=== PATIENT | male | born 1955 | race Caucasian/White ===

== ENCOUNTER 2020-06-28 07:39 | Outpatient (RCR) | payer MEDICAID, SELFPAY | END 2020-06-28 23:59 | disposition home or self-care (01) | LOC: ANHAUDIO 07:39 | PROVIDERS: PCP Family Medicine; Visit Provider Family Medicine | DX: Z46.1 Encounter for fitting and adjustment of hearing aid (principal) | CPT/HCPCS: 99199 ==

== ENCOUNTER 2020-09-28 08:44 | Outpatient (RCR) | payer MEDICAID, SELFPAY | END 2020-12-27 23:59 | disposition home or self-care (01) | LOC: ANHBWCAUD 08:44 | PROVIDERS: PCP Family Medicine; Visit Provider Family Medicine | DX: Z46.1 Encounter for fitting and adjustment of hearing aid (principal) | CPT/HCPCS: 99199 ==

== ENCOUNTER 2022-02-08 14:00 | Outpatient (RCR) | payer MEDICARE, MEDICAID, SELFPAY | END 2022-02-08 23:59 | disposition home or self-care (01) | LOC: ANHAUDIO 14:00 | PROVIDERS: PCP Family Medicine; Visit Provider Family Medicine | DX: Z46.1 Encounter for fitting and adjustment of hearing aid (principal) | CPT/HCPCS: 99199; V5014 ==

== ENCOUNTER 2024-12-30 15:38 | Outpatient (CLI) | payer MEDICARE, MEDICAID, SELFPAY ==
--- OUTSIDE RECORDS SUMMARY | 2024-12-30 15:44 | XMS_ITS | Referral Summary ---
Author Organization [facility] Address [address] [place] [address] Care Team Providers Care Utility Division Project Manager Name Role Phone Unavailable Primary Care Provider Unavailabl e Source Comments [facility],non-owned Affiliates and Associated Physician Practices is amultiple site organization consisting of ambulatory clinics and hospital sitesin [place], [place], [place] and [place]. This disclosure is being madepursuant to the Care Everywhere program and may not contain all information available regarding this patient. Last updated 18.[employer] Allergies No known active allergies Medications * Be aware that medications may not be up to date on this document. Alwaysverify current medications with the patient. Medication Sig Dispensed Refills Start Date End Date Status SYNTHROID 75 MCG tablet once daily. 03/22/2015 Active niacin CR (NIASPAN) 500 MG tablet Take 500 mg by mouth 2 times daily. 2 in the am and 2 in the pm Active oxyCODONE-acetaminop hen (PERCOCET) 5-325 MG tablet Take 1 Tab by mouth every 4 hours as needed for Pain. Active phenazopyridine (PYRIDIUM) 100 MG tablet Take 1 Tab by mouth 3 times daily with meals. 15 Tab 0 04/16/2015 Active Additional Information Patient not taking.Reported on 06/10/2015 hydrocodone-acetamin ophen (NORCO) 5-325 MG tablet Take 1 Tab by mouth every 6 hours as needed for Pain. 30 Tab 0 04/16/2015 Active Additional Information Patient not taking.Reported on 06/10/2015 clopidogrel (PLAVIX) 75 MG tablet Take 75 mg by mouth once daily. Active NITROSTAT 0.4 MG tablet 04/26/2015 Active simvastatin (ZOCOR) 40 MG tablet TAKE 1 TABLET AT BEDTIME 90 Tab 2 07/14/2016 Active Active Problems Problem Noted Date Diagnosed Date VISHNU to ramus in 03/201506/10/2015 VISHNU to ramus in 200406/10/2015 Hypercholesterolemia 06/10/2015 ERIK treated with BiPAP 06/10/2015 Resolved Problems Problem Noted Date Diagnosed Date Resolved Date Sinus bradycardia 06/07/2015 06/10/2015 Social History Tobacco Use Types Packs/Day Years Used Date Smoking Tobacco: Former Cigarettes Q uit: 04/15/2002 Tobacco Cessation:Counseling Given: No Alcohol Use Standard Drinks/Week Comments No 0 (1 standard drink = 0.6 oz pur e alcohol) Sex and Gender Information Value Date Recorded Sex Assigned at Not on file Gender Identity Not on file Sexual Orientation Not on file Last Filed Vital Signs Vital Sign Reading Time Taken Comments Blood Pressure 121/75 06/10/2015 3:08 PM CDT Pulse 55 06/10/2015 3:08 PM CDT Temperature 36.4 ??C (97.5 ??F) 04/16/2015 7:06 PM CD T Respiratory Rate 17 06/10/2015 3:08 PM CDT Oxygen Saturation 99% 04/16/2015 7:06 PM CDT Inhaled Oxygen Concentration - - Weight 87.1 kg (192 lb) 06/10/2015 3:08 PM CDT Height 180.3 cm (5' 11 ) 06/10/2015 3:08 PM CDT Body Mass Index 26.78 06/10/2015 3:08 PM CDT Plan of Treatment Not on file Medical Devices Implanted Type 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
--- OUTSIDE RECORDS SUMMARY | 2024-12-30 15:44 | XMS_ITS | Encounter Summary ---
Author Organization [facility] Address [address] [place] [address] Care Team Providers Care Pattern Chain Maker Supervisor Name Role Phone Ramu Parker MD Primary Care Provider [phone] Deirdre Jeong MD Unavailable Phillip Roque MD Unavailable [phone] Encounter Details Date Type Department Care Team (Late st Contact Info) Description 08/26/2021 [employer] Message Enc [facility] [address] [place] [address], [facility] [address] [place] [address] Yoel Cabrera MD [address] [place] [address] Visit Follow Up Social History Tobacco Use Types Packs/Day Years Used Date Smoking Tobacco: Former Smokeless Tobacco: Never Alcohol Use Standard Drinks/Week Comments Never 0 (1 standard drink = 0.6 oz pur e alcohol) AUDIT-C Answer Date Recorded Q1: How often do you have a drink containing alc ohol? 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 No / Unsure 08/26/2021 8:46 AM CDT documented as of this encounter Functional Status * RETIRED Are you deaf or do you have serious difficulty hearing Answer Date of Assessment Author Status No 08/03/2021 9:53 PM CDT Activ e * RETIRED Are you blind or do you have serious difficulty seeing, even when wearing glasses? Answer Date of Assessment Author Status No 08/03/2021 9:53 PM CDT Activ e * Do you have serious difficulty walking or climbing stairs? Answer Date of Assessment Author Status No 08/03/2021 9:53 PM CDT Gaye Hale RN Active * Do you have difficulty dressing or bathing? Answer Date of Assessment Author Status No 08/03/2021 9:53 PM CDT Gaye Hale RN Active * Because of a physical, mental, or emotional condition, do you have difficulty doing errands alone such as visiting a doctor's office or shopping? Answer Date of Assessment Author Status No 08/03/2021 9:53 PM CDT Gaye Hale RN Active documented as of this encounter Mental Status * Because of a physical, mental, or emotional condition, do you have serious difficulty concentrating, remembering, or making decisions? Answer Entry Date Author Status No 08/03/2021 9:53 PM CDT Gaye Hale RN Active documented in this encounter Plan of Treatment Upcoming Encounters Date Type Department Care Team (Late st Contact Info) Description 06/11/2025 9:00 AM CDT Appointment [facility] [address] [place] [address] Deirdre Jeong MD [address] [place], [place] [phone] 07/06/2025 3:00 PM CDT Office Visit [facility] [address] [place] [phone] Deirdre Jeong MD [address] [place], [place] [phone] documented as of this encounter Visit Diagnoses Not on filedocumented in this encounter Care Teams Pattern Chain Maker Supervisor Relationship Specialty Start Date End Date Ramu Parker MD [address] [place] [phone] PCP - General FAMILY PRACTICE 02/02/21 Deirdre Jeong MD [address] [place] [address] [place] [employer] CARDIOVASCULAR DISEASE 05/06/21 Phillip Roque MD [address] [place] [phone] UROLOGY 12/11/23 documented as of this encounter
--- OUTSIDE RECORDS SUMMARY | 2024-12-30 15:44 | XMS_ITS | Encounter Summary ---
Author Organization [facility] Address [address] [place] [address] Care Team Providers Care Lace Pinner Name Role Phone Unavailable Primary Care Provider Unavailabl e Encounter Details Date Type Department Care Team (Late st Contact Info) Description 06/14/2020 Lab Requisition [facility] [address] [place] [address] Bal Dia MD Social History Tobacco Use Types Packs/Day Years Used Date Smoking Tobacco: Former Cigarettes Q uit: 04/15/2002 Alcohol Use Standard Drinks/Week Comments No 0 (1 standard drink = 0.6 oz pur e alcohol) Sex and Gender Information Value Date Recorded Sex Assigned at Not on file Gender Identity Not on file Sexual Orientation Not on file documented as of this encounter Plan of Treatment Not on file documented as of this encounter Procedures Procedure Name Priority Date/Time Associated Diagnosis Comments SARS-COV-2 (COVID-19) IN HOUSE Routine 06/13/2020 10:10 AM CDT documented in this encounter Results * SARS-COV-2 (COVID-19) IN HOUSE (06/13/2020 10:10 AM CDT) COVID-19 PCR Not detected Not detected, Invalid 06/15/2020 12:[address] [facility] Microbiology SPECIMEN FROM NASOPHARYNGEAL STRUCTURE / Unknown Collection / Unknown 06/13/2020 10:10 AM CDT 06/14/2020 10:[address] [facility] - 06/15/2020 12:56 AM CDT This Real Time RT-PCR assay was developed and its performance characteristics determined by [facility]. This test has been authorized by the Food and Drug administration (FDA)under an Emergency Use Authorization (EUA). This test has been validated in accordance with the FDA's guidance document Policy for Diagnostic Testing in Laboratories Certified to perform High Complexity Testing under CLIA prior to Emergency Use Authorization for Coronavirus Disease-2019 during the Public Health Emergency issued on January 24, 2020. FDA independent review of this validation is pending. This test is only authorized for the duration of time the declaration that circumstances exist justifying the authorization of emergency use of in vitro diagnostic tests for detection of SARS-CoV-2 virus and/or diagnosis of COVID-19 infection under section 564(b)(1) of the Act, 21 U.S.C 360bbb-3 (b)(1), unless the authorization is terminated or revoked sooner. Bal Dia MD LAB - MICROBIOLOGY ORDERABLES [facility] [address] [place] [address], [facility] [phone] documented in this encounter Visit Diagnoses Not on filedocumented in this encounter Additional Health Concerns Infection Onset Date Last Indicated Resolved Time COVID-19 Under Investigation 06/14/2020 06/13/2020 06/15/2020 12:56 AM CDT documented as of this encounter
--- OUTSIDE RECORDS SUMMARY | 2024-12-30 15:44 | XMS_ITS | Clinical Summary ---
Author Organization [facility] Address [address] [place] [address] Care Team Providers Care Superintendent Service Name Role Phone Unavailable Primary Care Provider Unavailabl e Source Comments [facility],non-owned Affiliates and Associated Physician Practices is amultiple site organization consisting of ambulatory clinics and hospital sitesin [place], [place], [place] and [place]. This disclosure is being madepursuant to the Care Everywhere program and may not contain all information available regarding this patient. Last updated 18.[employer] Allergies No known active allergies Medications * [...] Date Resolved Date Sinus bradycardia 06/07/2015 06/10/2015 Family History Medical History Relation Name Comments Cancer - Other Father Heart defect Mother ADHD Neg Hx Allergies Neg Hx Aneurysm Neg Hx Asthma Neg Hx Autoimmune Disease Neg Hx Bipolar Disorder Neg Hx CVA<55(male) Neg Hx CVA<65(female) Neg Hx Cancer - Breast Neg Hx Cancer - Colon Neg Hx Cancer - Ovarian Neg Hx Cancer - Pancreatic Neg Hx Cancer - Prostate Neg Hx Childhood Hearing Disorder Neg Hx Clotting Disorder Neg Hx Depression Neg Hx Diabetes Neg Hx Eczema Neg Hx Genetic Neg Hx Hypercholesterolemia Neg Hx Hypertension Neg Hx RI<55(male) Neg Hx RI<65(female) Neg Hx Mental Health Neg Hx Migraine Neg Hx Osteoporosis Neg Hx Seizures Neg Hx Sudd. <30 Neg Hx Thyroid Disease Neg Hx Ulcerative Colitis Neg Hx Relation Name Status Comments Father Mother Social History Tobacco Use Types Packs/Day Years [...] 06/10/2015 3:08 PM CDT Plan of Treatment Health Maintenance Due Date Last Done Comments BARBIE (AGES 45-75) - COL ON CA SCREENING 1954 COLON MONITORING 1954 COLONOSCOPY - COLON CA SCREENING 1954 CT COLONOGRAPHY - COLON CA SCREENING 1954 Colorectal Cancer Screening 1954 FIT - COLON CA SCREENING 1954 FLEX SIG - COLON CA SCREENING 1954 MEDICARE AWV ? 12 MONTHS 1954 HEPATITIS C SCREENING 07/06/1972 DTAP/TDAP/TD VACCINES (1 - Tdap) 1973 PNEUMOCOCCAL VACCINE 50+ (1 of 1 - PCV) 2004 ZOSTER VACCINE (1 of 2) 2004 AAA SCREENING 2019 COVID-19 VACCINE (1 - 2023-2 5 season) 2024 INFLUENZA VACCINE (#1) 2024 DEPRESSION SCREENING 11/26/2024 Respiratory Syncytial Virus (RSV) Vaccine Pt: or over 60 yrs (1 - 1-dose 75+ series) 2029 HEPATITIS B VACCINE Aged Out No longe r eligible based on patient's age to complete this topic HIB VACCINE Aged Out No longer eligi ble based on patient's age to complete this topic HPV VACCINE Aged Out No longer eligi ble based on patient's age to complete this topic MENINGOCOCCAL (Group B) VACCINE Aged Out No longer eligible based on patient's age to complete this topic MENINGOCOCCAL VACCINE Aged Out No vishnu lady eligible based on patient's age to complete this topic Medical Devices Implanted Type Area Secondary School Principal Device Identifier Shelf Expiration Date Model / Serial / Lot Stent Uret Polaris Ultra 6.0fr X 26mm Implanted:Qty: 1 on 04/16/2015 by Jared Tamez MD at [facility] Right: [employer] [employer] 12/25/2017 [id number] / / [id number] Stent Uret Polaris Ultra 6.0fr X 26mm Implanted:Qty: 1 on 04/16/2015 by Jared Tamez MD at [facility] Left: [employer] 01/23/2018 [id number] / / [id number]
--- OUTSIDE RECORDS SUMMARY | 2024-12-30 15:44 | XMS_ITS | Clinical Summary ---
Author Organization [facility] Address [address] [place] [address] Care Team Providers Care Freelance Makeup Artist Name Role Phone Ramu Parker MD Primary Care Provider [phone] Amairani Grijalva MD Unavailable Phillip Roque MD Unavailable [phone] Allergies No known active allergies Medications niacin 500 MG Tab Take 1 tablet (500 mg total) by mouth 2 (two) times daily with meals. 3 Active Aspirin Buf,CaCarb-MgCa rb-MgO, 81 MG Tab Take 81 mg by mouth daily. Active vitamin D3, cholecalciferol , 1000 UNIT Tab tablet Take 1 tablet (25 mcg total) by mouth daily. Active sildenafil 20 MG tablet Take 1 tablet (20 mg total) by mouth as needed. Active levothyroxine 100 MCG tablet Take 1 tablet (100 mcg total) by mouth daily. 1 Active rOPINIRole 0.25 MG tablet Take 1 tablet (0.25 mg total) by mouth nightly at bedtime. 1 Active LISINOPRIL 5 MG tablet TAKE 1 TABLET ONCE DAILY 90 tablet 3 2 Active donepezil (ARICEPT) 10 MG TabIndications: MCI (mild cognitive impairment) Take 1 tablet (10 mg total) by mouth nightly at bedtime. 90 tablet 3 2 Active carbidopa-levod opa (SINEMET) 25-100 MG tabletIndicatio ns:Parkinson's disease (CMS/HCC HHS/HCC) Take 1 tablet by mouth 3 (three) times daily. 270 tablet 3 Active atorvastatin (LIPITOR) 40 MG tablet take 1 tablet by mouth every day 90 tablet 2 4 Active rivaroxaban (XARELTO) 2.5 MG tablet TAKE 1 TABLET BY MOUTH TWICE A DAY 60 tablet 11 4 Active oxybutynin (DITROPAN) 5 MG tablet Take 1 tablet (5 mg total) by mouth 3 (three) times daily. 4 Active tamsulosin (FLOMAX) 0.4 MG Cap Take 1 capsule (0.4 mg total) by mouth nightly at bedtime. 4 Active propranolol 10 MG tablet Take 10 mg by mouth 2 (two) times daily. 1 12/12/19 25 Discontinue d(Discontin ued by another clinician) lidocaine 4 % patch Place 2 patches onto the skin daily. Remove & Discard patch within 12 hours or as directed by 30 patch 12/12/19 25 Discontinue d(Error) Active Problems Problem Noted Date Diagnosed Date Closed fracture of glenoid c avity and neck of left scapula with routine healing, subsequent encounter 09/09/2021 Traumatic pneumothorax 08/03/2021 Contusion of left lung 08/03/2021 Closed fracture of multiple ribs of left side with routine healing 08/03/2021 Abrasions of multiple sites 08/03/2021 Pneumothorax 08/03/2021 MCI (mild cognitive impairment) 04/13/2021 Tremor 04/13/2021 TIA (transient ischemic attack) 04/13/2021 Mixed hyperlipidemia 02/11/2021 Vitamin D deficiency 12/25/2019 Bilateral hearing loss 06/17/2019 Daytime sleepiness 12/10/2018 Ganglion cyst of volar aspect of left wrist 10/26 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 ERIK treated with BiPAP 06/10/2015 Hypothyroidism 04/11/2014 Overview (04/01/2021): HYPOTHYROIDISM NOS Essential hypertension 04/11/2014 Overview (04/01/2021): HYPERTENSION NOS Encounters Date Type Department Care Team Description 12/22/2024 12:30 PM SEO ASSISTANT - 12/22/2024 1:53 PM SEO ASSISTANT Surgery [facility] [place] [address] Chauncey Goodrich MD CYSTOLITHOLAPAXY 12/22/2024 12:20 PM SEO ASSISTANT Anesthesia Event [facility] [place] [address] Guanako Donis MD Jarvis, Brittany L, HEALTHCARE NETWORK PRICING CONSULTANT 12/22/2024 9:38 AM SEO ASSISTANT - 12/22/2024 2:45 PM SEO ASSISTANT Hospital Encounter [facility] [place] [address] Chauncey Goodrich MD Discharge Disposition: Home or Self Care (Routine Discharge) 12/22/2024 Travel 12/12/2024 12:00 PM SEO ASSISTANT Office Visit [facility] [address] [place] [address] Amairani Grijalva MD Pre-Op Exam 12/12/2024 Orders Only [facility] [address] [place] [address] Amairani Grijalva MD 12/12/2024 Travel 12/12/2024 Orders Only [facility] [address] [place] [address] Amairani Grijalva MD 12/03/2024 Telephone [facility] [address] [place] [address] Amairani Grijalva MD Reschedule (12/22 appt/) from Last 3 Months Immunizations Name Administration Dates Next Due Fluzone High Dose - >Age 65 (Prefilled Syringe) 07/26/2020 H1N1 2009 Influenza Vaccine 07/30/2017, 6,09/13/2015 Influenza (Generic) 08/23/2018, 6,09/03/2015,2013 Influenza Adult (Generic) 09/08/2021,09/2019,08/06/2019,2017,08/22/2018,07/30/2017,09/13/2016,1 ,09/13/2015,09/13/2015, 015,09/12/2013 PFIZER COVID-19 (ORIGINAL FORMULATION, PURPLE CAP) mRNA, LNP-S, PF, 30 MCG/0.3 ML DOSE 02/01/2021 Pneumococcal (Pneumovax 23) 08/04/2020 Pneumococcal (Prevnar 13) 08/06/2019 Pneumococcal Vaccine 01/13/2015 Shingrix 01/14/2019,10/23/2018 Tdap (Boostrix) 08/03/2021 Tdap (Generic) 09/25/2019,09/03/2018 Family History Medical History Relation Comments Alcohol Abuse Brother Stroke Brother Cancer Father esophgeal cardiac issues Mother No Known Problems Other Lupus Sister Relation Status Comments Brother Father (Age 76) Mother (Age 81) Other Sister Social History Tobacco Use Types Packs/Day Years Used Date Smoking Tobacco: Former Smokeless Tobacco: Never Tobacco Cessation:Counseling Given: No Comments:Patient is no longer smoking Alcohol Use Standard Drinks/Week Comments Never 0 (1 standard drink = 0.6 oz pur e alcohol) AUDIT-C Answer Date Recorded Q1: How often do you have a drink containing alc ohol? Never 02/09/2021 Average Number of Drinks Not on file 021 Frequency of Binge Drinking Not on file 01/24 PHQ-2 Answer Date Recorded PHQ-2 Score - If the patient scores above 3, please move on to questions 3-9 1 04/11/2022 Sex and Gender Information Value Date Recorded Sex Assigned at Male 12/12/2024 11:38 AM SEO ASSISTANT Legal Sex Male 11:54 PM CDT Gender Identity Not on file Sexual Orientation Not on file Occupation Industry Job Start Date Job End Date retired Not on file Not on file Not on file Last Filed Vital Signs Vital Sign Reading Time Taken Comments Blood Pressure 118/62 12/22/2024 2:45 PM SEO ASSISTANT Pulse 87 12/22/2024 2:45 PM SEO ASSISTANT Temperature 36.6 ??C (97.8 ??F) 12/22/2024 2:45 PM CS T Respiratory Rate 16 12/22/2024 2:45 PM SEO ASSISTANT Oxygen Saturation 98% 12/22/2024 2:45 PM SEO ASSISTANT Inhaled Oxygen Concentration - - Weight 93.9 kg (207 lb 0.2 oz) 12/22/2024 10:00 AM SEO ASSISTANT Height 172.7 cm (5' 8 ) 12/22/2024 10:00 AM SEO ASSISTANT Body Mass Index 31.48 12/22/2024 10:00 AM SEO ASSISTANT Plan of Treatment Upcoming Encounters Date Type Department Care Team (Late st Contact Info) Description 06/11/2025 9:00 AM CDT Appointment [facility] [place] [address] Amairani Grijalva MD [address] [place], [place] [address] 07/06/2025 3:00 PM CDT Office Visit [facility] [address] [place] [address] Amairani Grijalva MD [address] [place], [place] [id number] Health Maintenance Due Date Last Done Comments Colorectal Cancer Screening Colonoscopy (10 Years) 1955 RSV Immunization or 60+ Years (1 - Risk 60-74 years 1-dose series) 2014 ASCVD LDL 02/22/2015 02/22/2014 Annual Medicare Wellness Visit 2019 COVID-19 Vaccine ( season) 2024 02/01/2021 Influenza Adult (#1) 2024 09/08/2021, 07/26/2020, 08/06/2019, Additional history exists DTaP, Tdap and Td Vaccines (4 - Td or Tdap) 08/03/2031 08/03/2021, 09/25/2019, 09/03/2018 Hepatitis C Completed 09/04/2018 Zoster Vaccines Completed 01/14/2019, 10/23/2018 Pneumococcal Vaccine: 65+ Years Completed 08/04/2020, 08/06/2019 AAA SCREENING Completed 06/16/2024, 090 06/2021, 07/28/2020, Additional history exists Meningococcal B Vaccine Aged Out No l onger eligible based on patient's age to complete this topic Meningococcal Vaccine Aged Out No vishnu lady eligible based on patient's age to complete this topic RSV Immunizations Under 20 Months Aged Out No longer eligible based on patient's age to complete this topic Procedures Procedure Name Priority Date/Time Associated Diagnosis Comments BIOPSY PROSTATE TRANSRECTAL WITH ULTRASOUND 12/22/2024 12:20 PM SEO ASSISTANT ENLARGED PROSTATE WITH LOWER URINARY TRACT SYMPTOMS Case Notes SCHED BY FAX ON 12/01/23 [facility] PHONE ASSESS CYSTOLITHOLAPAXY 12/22/2024 12:20 PM SEO ASSISTANT ENLARGED PROSTATE WITH LOWER URINARY TRACT SYMPTOMS Case Notes SCHED BY FAX ON 12/01/23 J PHONE ASSESS PATHOLOGY Routine 12/22/2024 12:00 AM SEO ASSISTANT ELECTROCARDIOGRAM (NON MIDMARK ACQUIRED) Routine 12/12/2024 11:47 AM SEO ASSISTANT Encounter for preprocedural cardiovascular examination CT ABD+PEL WO CON Routine 06/16/2024 10:59 AM CDT Kidney calculi LIPID PANEL Routine 02/22/2014 12:00 AM CDT from Last 3 Months or Most Recently Relevant to Health Maintenance Results * Pathology (12/22/2024 12:00 AM SEO ASSISTANT) PATHOLOGY [facility] ? Department of Laboratory Medicine ?[address] ?[place] [address] ? , extension [phone] ? Pathology Report ? Surgical Pathology Report Name: MAKEDA BRAY ? Specimen #: [id number] Age: 8 1955 (Age: 69) ?Location: [facility] Sex: M ?Procedure Date: 12/22/2024 Hospital #: [id number] ?Date Received: 12/23/2024 Date Reported: 12/24/2024 Provider: CHAUNCEY GOODRICH MD Source: A: Prostate, right lateral base, needle biopsy B: Prostate, right medial base, needle biopsy C: Prostate, right lateral mid, needle biopsy D: Prostate, right medial mid, needle biopsy E: Prostate, right lateral apex, needle biopsy F: Prostate, right medial apex, needle biopsy G: Prostate, left lateral base, needle biopsy H: Prostate, left medial base, needle biopsy I: Prostate, left lateral mid, needle biopsy J: Prostate, left medial mid, needle biopsy K: Prostate, left lateral apex, needle biopsy L: Prostate, left medial apex, needle biopsy Clinical History: Enlarged prostate with lower urinary tract symptoms. FINAL DIAGNOSIS: A. ??Prostate, right lateral base, core biopsy: ? -Benign prostatic parenchyma. B. ??Prostate, right medial base, core biopsy: ? -Benign prostatic parenchyma. C. ??Prostate, right lateral mid, core biopsy: ? -Benign prostatic parenchyma. D. ??Prostate, right medial mid, core biopsy: ? -Benign prostatic parenchyma. E. ??Prostate, right lateral apex, core biopsy: ? -Benign prostatic parenchyma. F. ??Prostate, right medial apex, core biopsy: ? -Benign prostatic parenchyma. G. ??Prostate, left lateral base, core biopsy: ? -Benign prostatic parenchyma. H. ??Prostate, left medial base, core biopsy: ? -Benign prostatic parenchyma. I. ??Prostate, left lateral mid, core biopsy: ? -Benign prostatic parenchyma. J. ??Prostate, left medial mid, core biopsy: ? -Benign prostatic parenchyma. K. ??Prostate, left lateral apex, core biopsy: ? -Benign prostatic parenchyma. L. ??Prostate, left medial apex, core biopsy: ? -Benign prostatic parenchyma. Diagnosis Comment: This case was seen with Dr. Khoi Odell who agrees the diagnosis. Gross Description: A. ??Received in formalin, labeled with a patient label and as right lateral base is a single less than 0.1 cm in diameter delicate white-orourke tissue core that is 1.5 cm in length. ??The specimen is entirely submitted in cassette A1. B. ??Received in formalin, labeled with a patient label and as right medial base is a single less than 0.1 cm in diameter delicate white-orourke tissue core that is 1.7 cm in length. ??The specimen is entirely submitted in cassette B1. C. ??Received in formalin, labeled with a patient label and as right lateral mid is a single less than 0.1 cm in diameter delicate white-orourke tissue core that is 1.3 cm in length. ??The specimen is entirely submitted in cassette C1. D. ??Received in formalin, labeled with a patient label and as right medial mid is a single less than 0.1 cm in diameter delicate white-orourke tissue core that is 2.0 cm in length. ??The specimen is entirely submitted in cassette D1. E. ??Received in formalin, labeled with a patient label and as right lateral apex are 2 less than 0.1 cm in diameter delicate white-orourke tissue cores each 0.5 cm in length. ??The specimen is entirely submitted in cassette E1. F. ??Received in formalin, labeled with a patient label and as right medial apex is a single less than 0.1 cm in diameter delicate white-orourke tissue core that is 1.5 cm in length. ??The specimen is entirely submitted in cassette F1. G. ??Received in formalin, labeled with a patient label and as left lateral base is a single less than 0.1 cm in diameter delicate white-orourke tissue core that is 1.0 cm in length. ??The specimen is entirely submitted in cassette G1. H. ??Received in formalin, labeled with a patient label and as left medial base is a single less than 0.1 cm in diameter delicate white-orourke tissue core that is 1.5 cm in length. ??The specimen is entirely submitted in cassette H1. I. ??Received in formalin, labeled with a patient label and as left lateral mid is a single less than 0.1 cm in diameter delicate white-orourke tissue core that is 1.2 cm in length. ??The specimen is entirely submitted in cassette I1. J. ??Received in formalin, labeled with a patient label and as left medial mid is a single less than 0.1 cm in diameter delicate white-orourke tissue core that is 1.2 cm in length. ??The specimen is entirely submitted in cassette J1. K. ??Received in formalin, labeled with a patient label and as left lateral apex are 2 less than 0.1 cm in diameter delicate white-orourke tissue cores each 0.5 cm in length. ??The specimen is entirely submitted in cassette K1. L. ??Received in formalin, labeled with a patient label and as left medial apex are 2 less than 0.1 cm in diameter delicate white-orourke tissue cores each 0.5 cm in length. ??The specimen is entirely submitted in cassette L1. Gross examination (when applicable), interpretation, and sign out were performed at [facility], [address] [place] [address]. ?? Electronically Signed Out ? KOBE HEATH MD [facility] TISSUE PROSTATIC STRUCTURE / Unknown 12/22/2024 12:11 PM SEO ASSISTANT Tissue specimen (specimen) PROSTATIC STRUCTURE / Unknown 12/22/2024 12:11 PM SEO ASSISTANT Tissue specimen (specimen) PROSTATIC STRUCTURE / Unknown 12/22/2024 12:11 PM SEO ASSISTANT Tissue specimen (specimen) PROSTATIC STRUCTURE / Unknown 12/22/2024 12:11 PM SEO ASSISTANT Tissue specimen (specimen) PROSTATIC STRUCTURE / Unknown 12/22/2024 12:11 PM SEO ASSISTANT Tissue specimen (specimen) PROSTATIC STRUCTURE / Unknown 12/22/2024 12:11 PM SEO ASSISTANT Tissue specimen (specimen) PROSTATIC STRUCTURE / Unknown 12/22/2024 12:11 PM SEO ASSISTANT Tissue specimen (specimen) PROSTATIC STRUCTURE / Unknown 12/22/2024 12:11 PM SEO ASSISTANT Tissue specimen (specimen) PROSTATIC STRUCTURE / Unknown 12/22/2024 12:11 PM SEO ASSISTANT Tissue specimen (specimen) PROSTATIC STRUCTURE / Unknown 12/22/2024 12:11 PM SEO ASSISTANT Tissue specimen (specimen) PROSTATIC STRUCTURE / Unknown 12/22/2024 12:11 PM SEO ASSISTANT Tissue specimen (specimen) PROSTATIC STRUCTURE / Unknown 12/22/2024 12:11 PM SEO ASSISTANT Chauncey Goodrich MD PATHOLOGY/CYTOLOGY ORDERABLES Fi nal Result Performing Organization Address [facility]/State/ZIP Co de Phone Number [facility] [address] [place] [address], [phone] * ELECTROCARDIOGRAM (12/12/2024 11:47 AM SEO ASSISTANT) 12/12/2024 11:4 7 AM SEO ASSISTANT Narrative [facility] - 12/12/2024 6:24 PM SEO ASSISTANT ? [facility] ?[address] [place], [place] ??[address] ? Test Date: ?2024-12-12 Pat Name: ? MAKEDA HARMS ? Department: ?? 105 ? Room: ? Gender: ? Male ? [employer]: ?? ajm : ?1955 ? Requested By: AMAIRANIRaphael GRIJALVA Order Number: [id number] ?Reading MD: ?? Amairani Grijalva ? Measurements Intervals ?[place] ? Rate: ? 53 ? P: ?78 LA: ? 153 ?QRS: ?69 QRSD: ? 109 ?T: ?61 QT: ? 461 ? QTc: ?433 ? Interpretive Statements SINUS BRADYCARDIA WITH OCCASIONAL VENTRICULAR PREMATURE COMPLEXES MODERATE VOLTAGE CRITERIA FOR LVH, CONSIDER NORMAL VARIANT MODERATE ST DEPRESSION ASSISTANT Procedure Note Amairani Grijalva MD - 12/12/2024 [facility] [address] [place] [address] Test Date: 2024-12-12 Pat Name: MAKEDA BRAY Department: 105 Room: Gender: Male [employer]: alyssa : 1955 Requested By: AMAIRANI GRIJALVA Order Number: [id number] Reading MD: Amairani Grijalva Measurements Intervals [place] Rate: 53 P: 78 [place]: 153 QRS: 69 QRSD: 109 T: 61 QT: 461 QTc: 433 Interpretive Statements SINUS BRADYCARDIA WITH OCCASIONAL VENTRICULAR PREMATURE COMPLEXES MODERATE VOLTAGE CRITERIA FOR LVH, CONSIDER NORMAL VARIANT MODERATE ST DEPRESSION ASSISTANT us Amairani Grijalva MD PROCEDURES-ORDERABLE NO CHARGE F inal Result [facility] * CT ABD+PEL WO CON (06/16/2024 10:59 AM CDT) Anatomical Region Laterality Modality Abdomen Computed Tomogra phy 06/16/2024 11:0 9 AM CDT Impressions 06/16/2024 5:08 PM CDT IMPRESSION: ?? 1. Enlargement of the visualized portion of the heart. 2. Small gallstones seen in segmented gallbladder. 3. Bilateral kidney stones. The largest in the left kidney ??measures 6 mm, largest in the right kidney measures 9 mm, both in their greatest dimensions. 4. Atherosclerotic changes in the aorta and its branching vessels. 5. Other findings as above in the body of the report. Ordered By: JOYCE SALEEM III Interpreted By: Sandra Whitaker MD, 06/16/2024 11:09 AM Narrative 06/16/2024 5:08 PM CDT EXAMINATION: ??CT ABD+PEL WO CON DATE: ??06/16/2024 10:34 AM HISTORY: History of left renal stone, prior stent in right kidney COMPARISON: ??CT abdomen pelvis 08/03/2021 TECHNIQUE: ??Computed tomography of the abdomen and pelvis was performed after intravenous administration of mL of Isovue-370 without immediate complication according to routine protocol. ??A dose lowering technique was used for this procedure, which may include, but is not limited to, dose reduction technique, automated exposure control, and/or the use of iterative reconstruction, in accordance with ALARA (As Low As Reasonably Achievable)/Image Gently principle. FINDINGS: ?? Chest: ??Dependent atelectasis. Calcified granuloma right lower lung base. Enlarged heart. Coronary calcifications. Large areas of calcification adjacent to the esophagus, possibly lymph nodes. Hepatobiliary system: ??The liver is normal in size and contour. Hypodensities seen throughout the liver. Lesion noted on comparison study not well appreciated on this noncontrast CT. Few pinpoint calcifications also seen throughout liver, likely granulomatous. No biliary ductal dilatation is identified. Gallstones seen in segmented gallbladder. Pancreas unremarkable. Genitourinary tract: ??The adrenal glands are normal. Multiple calcifications seen throughout the collecting system of the kidneys, likely representing lithiasis, which is consistent with patient's history. The largest of these stones measures approaching 6 mm in greatest dimension in the left kidney and 9 mm in greatest dimension in the right kidney. No hydronephrosis is identified. ??Calcification measuring approximately 7 mm in its greatest dimension is seen in the urinary bladder. No focal wall thickening appreciated. ??Prostate mildly enlarged with a few pinpoint calcification seen. Phleboliths noted in pelvis. Gastrointestinal tract: ??No pneumoperitoneum or ascites is identified. The stomach is normal in size. No small bowel dilatation or wall thickening is identified. The colon is normal in caliber and wall thickness. ??The appendix is not identified. Vasculature: ??The abdominal aorta is normal in caliber. Atherosclerotic changes of the aorta and its branching vessels noted. Lymphatics: Granulomatous calcifications seen in spleen. No retroperitoneal, mesenteric, iliac, or inguinal lymphadenopathy is identified. Musculoskeletal: ??No fracture or destructive osseous lesion is identified. ??There are degenerative changes throughout the visualized spine. Scoliosis noted. Procedure Note Gerardo Mason MD - 06/16/2024 EXAMINATION: CT ABD+PEL WO CON DATE: 06/16/2024 10:34 AM HISTORY: History of left renal stone, prior stent in right kidney COMPARISON: CT abdomen pelvis 08/03/2021 TECHNIQUE: Computed tomography of the abdomen and pelvis was performedafter intravenous administration of mL of Isovue-370 without immediatecomplication according to routine protocol. A dose lowering technique wasused for this procedure, which may include, but is not limited to, dosereduction technique, automated exposure control, and/or the use ofiterative reconstruction, in accordance with ALARA (As Low As ReasonablyAchievable)/Image Gently principle. FINDINGS: Chest: Dependent atelectasis. Calcified granuloma right lower lung base.Enlarged heart. Coronary calcifications. Large areas of calcificationadjacent to the esophagus, possibly lymph nodes. Hepatobiliary system: The liver is normal in size and contour.Hypodensities seen throughout the liver. Lesion noted on comparison studynot well appreciated on this noncontrast CT. Few pinpoint calcificationsalso seen throughout liver, likely granulomatous. No biliary ductaldilatation is identified. Gallstones seen in segmented gallbladder.Pancreas unremarkable. Genitourinary tract: The adrenal glands are normal. Multiplecalcifications seen throughout the collecting system of the kidneys,likely representing lithiasis, which is consistent with patient's history.The largest of these stones measures approaching 6 mm in greatestdimension in the left kidney and 9 mm in greatest dimension in the rightkidney. No hydronephrosis is identified. Calcification measuringapproximately 7 mm in its greatest dimension is seen in the urinarybladder. No focal wall thickening appreciated. Prostate mildly enlargedwith a few pinpoint calcification seen. Phleboliths noted in pelvis. Gastrointestinal tract: No pneumoperitoneum or ascites is identified. Thestomach is normal in size. No small bowel dilatation or wall thickening isidentified. The colon is normal in caliber and wall thickness. Theappendix is not identified. Vasculature: The abdominal aorta is normal in caliber. Atheroscleroticchanges of the aorta and its branching vessels noted. Lymphatics: Granulomatous calcifications seen in spleen. Noretroperitoneal, mesenteric, iliac, or inguinal lymphadenopathy isidentified. Musculoskeletal: No fracture or destructive osseous lesion is identified.There are degenerative changes throughout the visualized spine. Scoliosisnoted. IMPRESSION: 1. Enlargement of the visualized portion of the heart. 2. Small gallstones seen in segmented gallbladder. 3. Bilateral kidney stones. The largest in the left kidney measures 6 mm,largest in the right kidney measures 9 mm, both in their greatestdimensions. 4. Atherosclerotic changes in the aorta and its branching vessels. 5. Other findings as above in the body of the report. Ordered By: JOYCE SALEEM III Interpreted By: Sandra Whitaker MD, 06/16/2024 11:09 AM Joyce Saleem III, MD CT Final Re sult * LIPID PANEL (02/22/2014 12:00 AM CDT) TRIGLYCERIDES 54 0 - 150 mg/dl MEDIN[employer] TO EPIC CONVERSION CHOLESTEROL 107 0 - 200 mg/dl [employer] TO EPIC CONVERSION HDL 60 40 - 59 mg/dl [employer] TO EPIC CONVERSION LDL CONVERSION 36 0 - 100 mg/dl [employer] TO EPIC CONVERSION NON HDL CHOLESTEROL 47 0 - 130 mg/dL [employer] TO EPIC CONVERSION 02/22/2014 02/22/2014 Narrative MEDINFORMATIX TO EPIC CONVERSION - 02/24/2014 11:51 AM CDT Reviewed by PRASHANTH Apr ??1 2013 11:52:26:000AM Generic Conversion Md [facility] Final R esult MEDINFORMATIX TO EPIC CONVERSION from Last 3 Months or Most Recently Relevant to Health Maintenance Insurance MEDICARE MEDICAID Advance Directives * Full Code (Latest Code Status on File) Date Activated Date Inactivated Comments 08/03/2021 7:46 PM 08/05/2021 6:23 PM Care Teams Freelance Makeup Artist Relationship Specialty Start Date End Date Ramu Parker MD [address] [facility] [place], [place] [id number] PCP - General FAMILY PRACTICE 02/02/21 Amairani Grijalva MD [address] [place] [address] [place] [facility] CARDIOVASCULAR DISEASE 05/06/21 Phillip Roque MD [address] [place] [id number] UROLOGY 12/11/23
--- OUTSIDE RECORDS SUMMARY | 2024-12-30 15:44 | XMS_ITS | Patient Health Summary ---
Author Organization [facility] Address [address] [place] [address] Care Team Providers Care Customer Advisor Specialist Name Role Phone Unavailable Primary Care Provider Unavailabl e Note from [facility],non-owned Affiliates and Associated Physician Practices is amultiple site organization consisting of ambulatory clinics and hospital sitesin [place], [place], [place] and [place]. This disclosure is being madepursuant to the Care Everywhere program and may not contain all information available regarding this patient. Last updated 18.[place] [facility] Allergies No known active allergies Medications * Be aware that medications may not be up to date on this document. Alwaysverify current medications with the patient. * SYNTHROID 75 MCG tablet(Started 03/22/2015) once daily. * niacin CR (NIASPAN) 500 MG tablet Take 500 mg by mouth 2 times daily. 2 in the am and 2 in the pm * oxyCODONE-acetaminophen (PERCOCET) 5-325 MG tablet Take 1 Tab by mouth every 4 hours as needed for Pain. * phenazopyridine (PYRIDIUM) 100 MG tablet(Started 04/16/2015) Take 1 Tab by mouth 3 times daily with meals. * hydrocodone-acetaminophen (NORCO) 5-325 MG tablet(Started 04/16/2015) Take 1 Tab by mouth every 6 hours as needed for Pain. * clopidogrel (PLAVIX) 75 MG tablet Take 75 mg by mouth once daily. * NITROSTAT 0.4 MG tablet(Started 04/26/2015) * simvastatin (ZOCOR) 40 MG tablet(Started 07/14/2016) TAKE 1 TABLET AT BEDTIME 2 refills left Active Problems Problem Noted Date Diagnosed Date [...] Mass Index 26.78 06/10/2015 3:08 PM CDT Medical Devices Implanted Type Area Nascar Driver Device Identifier Shelf Expiration Date Model / Serial / Lot Stent Uret Polaris Ultra 6.0fr X 26mm Implanted:Qty: 1 on 04/16/2015 by Jared Tamez MD at [facility] Right: Ureter [employer] [employer] 12/25/2017 [id number] / / [id number] Stent Uret Polaris Ultra 6.0fr X 26mm Implanted:Qty: 1 on 04/16/2015 by Jared Tamez MD at [facility] Left: Ureter [place] [employer] 01/23/2018 [id number] / / [id number] Procedures * SARS-COV-2 (COVID-19) IN HOUSE(Performed 06/13/2020) * [place] ELECTRO-UROFLOWMETRY, FIRST(Performed 04/21/2015) Performed for Retention of urine * GROSS EXAM PATHOLOGY (STL)(Performed 04/16/2015) Performed for Calculus of kidney [592.0] * STONE ANALYSIS QUANT(Performed 04/16/2015) Performed for Calculus of kidney [592.0] * CYSTOSCOPY URETEROSCOPY WITH LASER/HOLMIUM LITHOTRIPSY(Performed 04/16/2015) Performed for Calculus of kidney * BASIC METABOLIC PANEL (CALCIUM TOTAL)(Performed 04/16/2015) Performed for Pre-op examination * CBC W AUTO DIFFERENTIAL(Performed 04/16/2015) Performed for Pre-op examination * EKG 12-LEAD(Performed 04/16/2015) Performed for Pre-op examination * URINALYSIS AUTO W MICROSCOPIC - POINT OF CARE (AMB)(Performed 04/02/2015) Performed for Kidney stone * CULTURE URINE(Performed 04/02/2015) Performed for Kidney stone Results * SARS-COV-2 (COVID-19) IN HOUSE (06/13/2020 10:10 AM CDT) COVID-19 PCR Not detected Not detected, Invalid 06/15/2020 12:56 AM CDT [facility] Microbiology SPECIMEN FROM NASOPHARYNGEAL STRUCTURE / Unknown Collection / Unknown 06/13/2020 10:10 AM CDT 06/14/2020 10:30 AM CDT Narrative [facility] - 06/15/2020 12:56 AM CDT This Real Time RT-PCR assay was developed and its performance characteristics determined by [facility]. This test has been authorized [...] Bal Dia MD LAB - MICROBIOLOGY ORDERABLES [facility] [address] [place], [place] [address], [facility] [phone] * [facility] ELECTRO-UROFLOWMETRY, FIRST (04/21/2015) Narrative Rebekah Franks L - 04/21/2015 300cc in 300cc out Jared Tamez MD [place] - PROFESSIONAL SERVICES * GROSS EXAM PATHOLOGY (STL) (04/16/2015 2:31 PM CDT) Case Report Surgical Pathology Report ? Case: [id number] ? Authorizing Provider: ??Jared Tamez MD ? Collected: ? 04/16/2015 02:31 PM ? Ordering Location: ? [facility] ? Received: ?04/17/2015 06:26 AM ? Pathologist: ? Rober Gale MD ? Specimen: ?Calculus Kidney, right ureter stone ? 04/20/2015 3:43 PM CDT [facility] Final Diagnosis 1. ??Kidney calculus: -- ??Gross examination only BEBE/abdirizak 04/20/2015 3:43 PM CDT [facility] Gross Description Received fresh in a container labeled Alonzo Bray and right ureter stone, are four irregular/spheri moshe yellow and brown calculi ranging in greatest dimension from 0.1 up to 0.7 cm. The specimen is submitted entirely for chemical analysis. KATYA/kristina 04/20/2015 3:43 PM CDT [facility] Testing Performed By [facility] at [facility]. 04/20/2015 3:43 PM CDT [facility] Pathology/Cytolo gy KIDNEY STONE / Unknown 04/16/2015 2:31 PM CDT 04/17/2015 6:26 AM CDT Jared Tamez MD LAB - PATHOLOGY/CY TOLOGY ORDERABLES [facility] [address] [place] [address] * STONE ANALYSIS QUANT (04/16/2015 2:31 PM CDT) Calculi Mass 309 mg 04/21/2015 9:30 AM T [facility] ([facility]) Calculi Number 4 04/21/2015 9:30 AM [facility] ([facility]) Calculi Size Various mm 04/21/2015 9:30 AM [facility] ([facility]) Calculi Description See Note 04/21/2015 9:30 AM [facility] ([facility]) Comment: Specimen consists of four, various sized (1 mm to 9 mm), light orourke/dark orourke, irregular calculi fragments. Calculi Composition See Note 04/21/2015 9:30 AM [facility] ([facility]) Comment: Calculi composed primarily of: 50% calcium oxalate monohydrate, 30% calcium oxalate dihydrate, and 20% calcium phosphate (hydroxy- and carbonate- apatite). INTERPRETIVE INFORMATION: Calculi (Stone) analysis Calculi are the products of physiological processes that yield crystalline compounds in a matrix of biological compounds and blood. ??Matrix components are not reported. ??The clinically significant crystalline components identified in calculi specimens are reported. ??Gross description may not be consistent with composition determined by FTIR analysis. Miscellaneous samples (specimen) CALCULUS SPECIMEN / Unknown 04/16/2015 2:31 PM CDT 04/17/2015 7:31 AM CDT Jared Tamez MD LAB - URINE CHEMIS TRY ORDERABLES [facility] ([facility]) [address] * CBC W AUTO DIFFERENTIAL (04/16/2015 12:32 PM CDT) WBC 6.0 4.4 - 10.7 x10^9/L 04/16/2015 12:39 PM CDT [facility] WBC Corrected x10^9/L 04/16/2015 12:39 PM CDT [facility] RBC 4.63 3.80 - 5.40 x10^12/L 04/16/2015 12:39 PM CDT [facility] Hemoglobin 14.4 12.0 - 17.6 gm/dL 04/16/2015 12:39 PM CDT [facility] Hematocrit 41.9 35.2 - 51.7 % 04/16/2015 12:39 PM CDT [facility] MCV 90.5 80.7 - 98.3 fl 04/16/2015 12:39 PM CDT [facility] MCH 31.1 26.7 - 34.0 pg 04/16/2015 12:39 PM CDT [facility] MCHC 34.4 30.8 - 35.9 gm/dL 04/16/2015 12:39 PM CDT [facility] Platelet Count 196 153 - 416 x10^9/L 04/16/2015 12:39 PM CDT [facility] RDW-CV 13.7 12.1 - 14.9 % 04/16/2015 12:39 PM CDT [facility] MPV 10.9 9.4 - 12.9 fl 04/16/2015 12:39 PM CDT [facility] Neutrophils % 61.4 44.0 - 73.0 % 04/16/2015 12:39 PM CDT [facility] Lymphocytes % 25.1 20.0 - 43.0 % 04/16/2015 12:39 PM CDT [facility] Monocytes % 8.0 5.0 - 13.0 % 04/16/2015 12:39 PM CDT [facility] Eosinophils % 5.0 0.0 - 6.0 % 04/16/2015 12:39 PM CDT [facility] Basophils % 0.3 0.0 - 2.0 % 04/16/2015 12:39 PM CDT [facility] Immature Granulocytes 0.2 0 - 1 % 04/16/2015 12:39 PM CDT [facility] Neutrophil Absolute 3.70 2.01 - 7.14 x10^9/L 04/16/2015 12:39 PM CDT [facility] Lymphocytes Absolute 1.51 1.07 - 3.94 x10^9/L 04/16/2015 12:39 PM CDT [facility] Monocytes Absolute 0.48 0.26 - 1.07 x10^9/L 04/16/2015 12:39 PM CDT [facility] Eosinophils Absolute 0.30 0 - 0.47 x10^9/L 04/16/2015 12:39 PM CDT [facility] Basophils Absolute 0.02 0 - 0.08 x10^9/L 04/16/2015 12:39 PM CDT [facility] Immature Granulocytes Absolute 0.01 0.00 - 0.06 x10^9/L 04/16/2015 12:39 PM CDT [facility] Blood BLOOD SPECIMEN / Unknown 04/16/2015 12:32 PM CDT 04/16/2015 12:36 PM CDT Jared Tamez MD LAB - HEMATOLOGY O RDERABLES [facility] [address] [place] [address] * BASIC METABOLIC PANEL (CALCIUM TOTAL) (04/16/2015 12:32 PM CDT) [facility] Glucose 87 74 - 106 mg/dL 04/16/2015 12:58 PM CDT [facility] Sodium 141 136 - 145 mmol/L 04/16/2015 12:58 PM CDT [facility] Potassium 4.2 3.5 - 5.1 mmol/L 04/16/2015 12:58 PM CDT [facility] Chloride 106 98 - 107 mmol/L 04/16/2015 12:58 PM CDT [facility] CO2 28 22 - 31 mmol/L 04/16/2015 12:58 PM CDT [facility] Calcium 9.2 8.5 - 10.1 mg/dL 04/16/2015 12:58 PM CDT [facility] Anion Gap 7 5 - 15 mmol/L 04/16/2015 12:58 PM CDT [facility] BUN 16 7 - 21 mg/dL 04/16/2015 12:58 PM CDT [facility] Creatinine 0.72 0.50 - 1.30 mg/dL 04/16/2015 12:58 PM CDT [facility] eGFR by MDRD >60 >60 mL/min/1.7 3m2 04/16/2015 12:58 PM CDT [facility] eGFR by MDRD >60 >60 mL/min/1.7 3m2 04/16/2015 12:58 PM CDT [facility] Blood BLOOD SPECIMEN / Unknown 04/16/2015 12:32 PM CDT 04/16/2015 12:36 PM CDT Jared Tamez MD LAB - CHEMISTRY OR DERABLES [facility] [address] [place] [address] * EKG 12-LEAD (04/16/2015 12:20 PM CDT) Ventricular Rate 45 BPM [facility] Atrial Rate 45 BPM [facility] P-R Interval 136 ms [facility] QRS Duration ms 96 ms [facility] Q-T Interval ms 516 ms [facility] QTC Calculation (Bezet) 446 ms [facility] Calculated P [place] 74 degrees [facility] Calculated R [place] 23 degrees [facility] Calculated T [place] 19 degrees [facility] Interpretation EKG Marked sinus bradycardia Possible Left atrial enlargement Abnormal ECG No previous ECGs available Confirmed by THALIA PICKETT MD ([id number]) on 04/16/2015 2:45:56 PM [facility] 04/16/2015 12:2 0 PM CDT 04/16/2015 2:45 PM CDT Jared Tamez MD ECG ORDERABLES [facility] * URINALYSIS AUTO W MICROSCOPIC - POINT OF CARE (AMB) (04/02/2015 10:57 AM CDT) Clarity UA POCT Color UA POCT Glucose UA neg Negative Bilirubin UA POCT neg Negative Ketone UA neg Negative Specific [place] UA POCT 1.020 1.002 - 1.030 Blood UA small Negtive pH UA 6.5 5.0 - 8.0 pH units Protein UA POCT neg Negative Urobilinogen UA 0.2 0.1 - 1.0 Nitrite UA POCT neg Negative Leukocyte UA neg Negative QC Verified Yes Yes RBC UA POCT 1 0 - 1 HPF WBC UA POCT 0 0 - 1 HPF Epithelial Cell UA POCT 0 0 - 1 HPF Bacteria UA POCT 0 None Mucus UA POCT 0 None Casts UA POCT 0 None LPF Crystals UA POCT 2-3 None LPF Urine Other Urine specimen (specimen) URINE / Unknown 04/02/2015 10:57 AM CDT Jared Tamez MD LAB - POINT OF CAR E ORDERABLES * CULTURE URINE (04/02/2015 10:55 AM CDT) Culture [facility] Comment: ??CULTURE, URINE, ROUTINE ?MICRO NUMBER: ?[id number] ??TEST STATUS: ? FINAL ??SPECIMEN SOURCE: ?? URINE ??SPECIMEN QUALITY: ??ADEQUATE ??RESULT: ?No Growth Test Performed at: [facility] ??[id number] KAMERON BA MD Urine specimen (specimen) MID-STREAM URINE SPECIMEN / Unknown 04/02/2015 10:55 AM CDT 04/03/2015 2:58 AM CDT Jared Tamez MD LAB - MICROBIOLOGY ORDERABLES [address] [address]
--- OUTSIDE RECORDS SUMMARY | 2024-12-30 15:44 | XMS_ITS | Data Portability ---
Author Organization [facility], [address] Neurology ([place]) Address [address] [place] [address] Care Team Providers Care Spider Assembler Name Role Phone SARIAH RUBIO Primary Care Provider Assessment Encounter Date Assessment Date Assessment LastModified by Organization Details LastModified Time 09/01/2024 09/01/2024 ASSESSMENT AND PLAN: Alonzo Bray is a 69-year-old male who returns for follow-up for parkinsonism, restless leg syndrome and mild cognitive impairment. In the interim since I last saw him, he has been doing well. We are going to maintain Sinemet for him at the current dose of 25-100 mg 3 times a day. In addition to this, he maintains on Donepezil 10 mg daily. I will not change this at this point. He reports no adverse effects. His [place] cognitive assessment score today is 26 out of 30. He had a change in his hearing aids, and he has some difficulty with hearing directions, but he performs extremely well when given alternative tasks as a comparable score to his historical score, so I am not concerned about this at this time. For now, since he is doing well, we will see him back in 1 year. If he has any problems in the interim, he understands to call the office. I personally spent a total of 10 minutes on the patient on this date of service including both zjxp-zk-keto and cjt-hikh-iq-fa ce time excluding any separately reportable services. kinsey gamboa Not available 09/01/2024 15:36:48 Plan of Treatment Reminders Order Date Submit Date Provider Last Modified By Organization Details Last Modified Time Details Appointments None record ed. Lab None record ed. Referral None record ed. Procedures None record ed. Surgeries None record ed. Imaging None record ed. Medication Orders None record ed. Patient TargetsNo targets recorded. Patient InstructionsNo instructions recorded. Reason for Referral None Reported. Results Created Date Observation Date Name Description Value Unit Range Abnormal Flag Note LastModifiedBy Organization Detail LastModifiedTime 09/23/20 24 02/04/2024 imagi ng/di agnos tic resul t No observ ation record ed. [email or web address] Not Available 04:02:20 09/23/20 24 11/14/2023 imagi ng/di agnos tic resul t No observ ation record ed. [email or web address] Not Available 04:02:25 Result Notes None recorded. Problems Name Problem SNOMED Code Status Onset Date Resolution Date Notes Provider Name and Address Organization Details Recorded Time Impaired cognition 152377450 Active 2023 Estefania Paz MD [address] [place] [address], [phone], [facility] 4 14:47:26 Parkinsonism 62953128 Active 2023 Estefania Paz MD [address] [place] [address], [phone], [facility] 4 14:47:48 Tremor 62240387 Active 2023 Estefania Paz MD [address] [place] [address], [phone], [facility] 4 14:47:59 Restless legs 21862782 Active 2023 Estefania Paz MD [address] [place] [address], [phone], [facility] 4 14:48:17 Problem Notes None recorded. Procedures Surgical History Date Name Laterality Status Provider Name and Address Organization Details Recorded Time Prq card stent w/angio 1 vsl completed Not Available Health Note 08/30/2024 15:10:47 Colonoscopy with biopsy completed Not Available Health Note 08/30/2024 15:10:47 Removal of tonsils completed Not Available Health Note 08/30/2024 15:10:47 Imaging Results Imaging Date Name Status [facility] Details LastModified Time 02/04/2024 imaging/diag nostic result completed Information not available 09/23/2024 04:02:20 11/14/2023 imaging/diag nostic result completed Information not available 09/23/2024 04:02:25 Procedure Notes None recorded. Medical Equipment None Reported. Allergies No known drug allergies Medications Name Sig Start Date Stop Date Status Note LastModified by Organization Details LastModified Time atorvastatin 40 mg tablet TAKE 1 TABLET BY MOUTH EVERY DAY active Not Available Not Available No t Available donepezil 10 mg tablet TAKE 1 TABLET BY MOUTH AT BEDTIME active Not Available Not Available No t Available tramadol 50 mg tablet TAKE 1 TABLET BY MOUTH EVERY 6 HOURS active Not Available Not Available No t Available levothyroxine 100 mcg tablet TAKE 1 TABLET BY MOUTH EVERY DAY active Not Available Not Available No t Available tamsulosin 0.4 mg capsule TAKE 1 CAPSULE BY MOUTH EVERYDAY AT BEDTIME active Not Available Not Available No t Available ropinirole 0.25 mg tablet TAKE 1 TABLET BY MOUTH EVERY DAY 2 HOURS BEFORE BEDTIME active Not Available Not Available No t Available cephalexin 500 mg capsule TAKE 1 CAPSULE BY MOUTH 4 TIMES A DAY X 5 DAYS active Not Available Not Available No t Available nitroglycerin 0.4 mg sublingual tablet [PLACE 1 TABLET UNDER THE TONGUE EVERY 5 MINUTES FOR UP TO 3 DOSES NEEDED FOR CHEST PAIN.CALL 911 IF PAIN PERSISTS. ] active Not Available Not Available No t Available lisinopril 5 mg tablet TAKE 1 TABLET BY MOUTH DAILY active Not Available Not Available No t Available carbidopa 25 mg-levodopa 100 mg tablet TAKE 1 TABLET BY MOUTH THREE TIMES A DAY active Not Available Not Available No t Available oxybutynin chloride 5 mg tablet TAKE 1 TABLET BY MOUTH THREE TIMES A DAY active Not Available Not Available No t Available nitrofurantoin monohydrate/ma crocrystals 100 mg capsule TAKE 1 CAPSULE BY MOUTH TWO TIMES A DAY FOR 7 DAYS UNTIL ALL IS GONE active Not Available Not Available No t Available budesonide-for moterol HFA 160 mcg-4.5 mcg/actuation aerosol inhaler TAKE 2 PUFFS TWICE A DAY RINSE AFTER USE active Not Available Not Available No t Available Xarelto 2.5 mg tablet TAKE 1 TABLET BY MOUTH TWICE A DAY active Not Available Not Available No t Available Vitals Date Recorded Body height Body mass index (BMI) Body weight Heart rate Oxygen saturation Oxygen saturation in Arterial blood by Pulse oximetry Systolic blood pressure Diastolic blood pressure Provider Name and Address Organization Details Last Updated DateTime 180.34 cm 28.2 kg/m2 85783.6 6 g 68 /min 100 % 100 % 126 mm[Hg] 63 mm[Hg] Lindsay Castellond [facility] 14:10:33 Social History Question Answer Notes LastModified by [employer] Details LastModified Time Tobacco Smoking Status Former Smoker Not Available Health Note 08/30/2024 15:10:48 Do You Have An Advance Directive? No [email or web address] Information not available 08/30/2024 What Is Your Level Of Alcohol Consumption? None [email or web address] Information not available 08/30/2024 What Is Your Level Of Caffeine Consumption? Occasional [email or web address] Information not available 08/30/2024 Are You Currently Employed? No [email or web address] Information not available 08/30/2024 What Is Your Occupation? Retired [email or web address] Information not available 08/30/2024 How Many Times Per Week Do You Exercise? 3-4 Times Per Week [email or web address] Information not available 08/30/2024 When Did You Quit Smoking? 2016 [email or web address] Information not available 08/30/2024 Do You Have A Medical Power Of Fitness Coach? No [email or web address] Information not available 08/30/2024 What Was The Date Of Your Most Recent Tobacco Screening? 09/01/2024 [email or web address] Information not available 08/30/2024 What Is Your Relationship Status? [email or web address] Information not available 08/30/2024 Do You Use Any Illicit Or Recreational Drugs? No [email or web address] Information not available 08/30/2024 Sex: Unknown Functional Status Question Answer Note LastModified by [email or web address] Details LastModified Time What is your exercise level? Occasional [email or web address] Information not available 08/30/2024 Mental Status None recorded. Family History Relationship Description Onset Age of this Age Resolved Age Notes LastModified by Organization Details LastModified Time Mother Arthritis [email or web address] Not available 08/30/2024 15:10:47 Mother Heart disease [email or web address] Not available 2023 15:10:47 Mother Hypertensive disorder [email or web address] Not available 2023 15:10:47 Mother Cerebrovascu lar accident [email or web address] Not available 03/2024 15:10:47 Father Arthritis [email or web address] Not available 08/30/2024 15:10:47 Father Family history of malignant neoplasm [email or web address] Not available 2023 15:10:47 Unspecified Relation Diabetes mellitus [email or web address] Not available 2023 15:10:47 Unspecified Relation Hypercholest erolemia [email or web address] Not available 2023 15:10:47 Medical History Condition Response Diabetes N Anxiety Disorder N Bleeding Disorder N Attention-deficit Hyperactivity Disorder N High Blood Pressure N Arthritis Y Hyperlipidemia N Cancer N Stroke Y Thyroid Problems Y Asthma N Depression N COPD N Anemia N Seizures N Heart Disease N Fibromyalgia N Osteoporosis N Kidney Disease Y Past Encounters Encounter ID Performer Location Encounter Start Date Encounter Closed Date Diagnosis/Indication Diagnosis SNOMED-CT Code Diagnosis ICD10 Code Diagnosis Note [id number] Estefania Paz MD [facility] ([facility]) [address] [place] [address] 09/01/2024 14:01:32 09/01/2024 14:56:41 Impaired cognition 400397238 G31.84 Additional diagnosis detail: Mild cognitive impairment Parkinsonism 73277039 G2 0.C Additional diagnosis detail: Parkinsoni sm, unspecifie d Parkinsoni sm type Tremor 77612156 R25.1 Restless legs 82591945 G 25.81 Health Concerns Section Related Observation LastModified by Organization Detai ls LastModified Time None Recorded Concern Status LastModified by Organization Details LastModified Time None Recorded Advance Directives Directive N: Payers Encounter Date Sequence Insurance Name Policy Number Policy Sandoval Covered Member ID Sandoval Member ID Guarantor Name 09/01/2024 1 [place] Alonzoanshu Bray [id number] Alonzo Hendrickson Katarina 09/01/2024 2 [place] [employer] Alonzo Bray [id number] Alonzo Bray Notes Date Note Type Note Provider Name and Address Organization Details Recorded Time 09/01/2024 text/html Alonzo Bray is a 69-year-old male who returns for follow-up for history of reported parkinsonism, restless leg syndrome, mild cognitive impairment. In the interim since I last saw him, he has been stable. He is still doing well on Sinemet 25-100 mg 3 times a day. Historically we discussed I suspect more likely related to BET, but he was treated by a prior physician and thinks he overall does well on medication. He does not report any adverse effects at this time. When I last saw him, we completed a [place] cognitive assessment score with a score of 29 out of 30. He does not report any changes in memory and thinking. He is on Donepezil and tolerating the medication well. Unfortunately, his about 5 months ago. He is doing okay. She had spread of cancer and subsequently succumbed to the disease with intracranial spread. He has a very supportive family at this time and has some assistance at home with cleaning his house. Estefania Paz MD [address] [facility], [place], [address], [facility] 09/02/2024 12:35:25
--- OUTSIDE RECORDS SUMMARY | 2024-12-30 15:45 | XMS_ITS | Encounter Summary ---
Author Organization [facility] Address [address] [place] [address] Phone Care Team Providers Care Wine And Spirits Clerk Name Role Phone Yoandy Adkins MD Unavailable [phone] Luis M Almzaan MD Primary Care Provider Ramu Parker MD Primary Care Provider Olegario Rhodes MD Unavailable Reason for Visit * Reason Comments Medication Refill Encounter Details Date Type Department Care Team ([facility] Contact Info) Description 11/29/[facility] [address] [place], [place] [id number] Luis M Almazan MD [address] [address] Medication Refill Social History Tobacco Use Types Packs/Day Years Used Date Smoking Tobacco: Former Cigarettes 2 30 0 02/28/1972 - 02/27/2002 Smokeless Tobacco: Never Alcohol Use Standard Drinks/Week Comments No 0 (1 standard drink = 0.6 oz pur e alcohol) PHQ-2 Answer Date Recorded PHQ-2 Score 0 07/24/2019 Sexually Active Control Partners Comments Yes Female Sex and Gender Information Value Date Recorded Sex Assigned at Not on file Legal Sex Male 9:29 PM CDT Gender Identity Not on file Sexual Orientation Not on file Occupation Industry Job Start Date Job End Date Retired Not on file Not on file Not on file COVID-19 Exposure Response Date Recorded In the last month, have you been in contact with someone who was confirmed or suspected to have Coronavirus / COVID-19? No / Unsure 11/05/2020 8:28 AM ROLL MECHANIC documented as of this encounter Plan of Treatment Not on file documented as of this encounter Visit Diagnoses Not on filedocumented in this encounter Additional Health Concerns Assessment Noted Time PHQ-9 Depression Total Score: 0 12/25/19 20 10:05 AM ROLL MECHANIC documented as of this encounter Care Teams Wine And Spirits Clerk Relationship Specialty Start Date End Date Luis M Almazan MD [address] [address] PCP - General Family Medicine 09/03/18 12/21/21 Ramu Parker MD [address] [place] [address] [address] [place] [address] PCP - General Family Medicine 12/22/21 Yoandy Adkins MD General Surgery 11/01/17 Olegario Rhodes MD [address] [place] [address] Consulting Physician Pulmonary Disease 06/21/22 documented as of this encounter
--- OUTSIDE RECORDS SUMMARY | 2024-12-30 15:45 | XMS_ITS | CONTINUITY OF CARE DOCUMENT ---
Author Name nanopepejoyce Address Unknown Organization [facility] Address [address] [place] [address] Phone [phone] Care Team Providers Care Medical Professionals Name Role Phone Niru Kumar MD Unavailable SUYAPA BRITO MD Unavailable SUYAPA BRITO MD Unavailable PROBLEMS Condition Status Date Provider Notes ERIK - On CPAP active Niru Kumar MD Cardiomyopathy - EF 45-50% cath 08/2019 active Timmy Oneal Weakness of left arm active Jesse Huerta Hypothyroidism active Jessejudd Huerta Hyperlipidemia active Jessejudd Huerta CAD s/p ramus stent 2005, & rebel stent 2015 after blood clot in ramus active Jesse Huerta ENCOUNTERS Date Type Provider Location Encounter Diag nosis - In-person encounter Office Visit Niru Kumar MD [facility] Cardiomyopathy - EF 45-50% cath 08/2019 - In-person encounter Office Visit Niru Kumar MD [facility] - In-person encounter Office Visit Niru Kumar MD [facility] - In-person encounter Office Visit Niru Kumar MD [facility] ERIK - On CPAP - In-person encounter Office Visit Domenic Glez MD [facility] Cardiomyopathy - EF 45-50% cath 08/2019 - In-person encounter Office Visit Niru Kumar MD [facility] - In-person encounter Office Visit Niru Kumar MD [facility] CAD s/p ramus stent 2005, & rebel stent 2014 [facility] blood clot [facility]roidismWeakness [facility] left arm VITAL SIGNS Date Observation Value Provider Body Mass Index (Ratio) 29.98 kg/m2 Santy n Jm pulse rate 54 /min Renay Block blood pressure, diastolic 70 mm[Hg] Br ittany Block blood pressure, systolic 120 mm[Hg] La ttany Block oxygen saturation, oximetry 97 % [facility] weight E&M 215 [lb_av] Renay Block respiratory rate E&M 16 /min [facility] y Block height E&M 71 [in_i] Renay Block height E&M 71 [in_i] Niru Kumar MD Body Mass Index (Ratio) 28.17 kg/m2 Santy n Jm blood pressure, diastolic 60 mm[Hg] Br ittany Block blood pressure, systolic 100 mm[Hg] La ttany Block pulse rate 60 /min Renay Block oxygen saturation, oximetry 98 % Renay Block weight E&M 202 [lb_av] Renay Block respiratory rate E&M 16 /min [facility] height E&M 71 [in_i] Renay Block Body Mass Index (Ratio) 27.47 kg/m2 Santy n Jm blood pressure, cuff size regular Ra ritesh Slusser blood pressure, diastolic 72 mm[Hg] Ra ritesh Slusser blood pressure, systolic 122 mm[Hg] Rac hel Slusser oxygen saturation, oximetry 96 % Charisma Slusser respiratory rate E&M 16 /min Charisma Slusser pulse rate 74 /min Charisma Slusser temperature E&M 197 [degF] Charisma Sluss er weight E&M 197 [lb_av] Charisma Slusser height E&M 71 [in_i] Charisma Slusser Body Mass Index (Ratio) 27.61 kg/m2 Santy mago Arzatete blood pressure, cuff size large Ke rri [facility]fmount ascut[facility] hospitaler blood pressure, diastolic 80 mm[Hg] Ke rri [facility]akan[facility]fmount ascut[facility] hospitaler blood pressure, systolic 120 mm[Hg] Bhaskar ri [facility] oxygen saturation, oximetry 98 % Lala Dayfransicoapaayush respiratory rate E&M 20 /min Lala Roddy don pulse rate 51 /min Lala You er weight E&M 198 [lb_av] Lala Twilae er height E&M 71 [in_i] Lala You [facility] Body Mass Index (Ratio) 28.03 kg/m2 Luis Glez MD blood pressure, diastolic 80 mm[Hg] Adria Castellanosby blood pressure, systolic 110 mm[Hg] Adriai jean Castellanosby respiratory rate E&M 17 /min Sonia [place] oxygen saturation, oximetry 98 % Sonia [place] pulse rate 53 /min Sonia Joe blood pressure, cuff size regular Kr isjess [place] weight E&M 201 [lb_av] Sonia Joe height E&M 71 [in_i] Sonia [place] Body Mass Index (Ratio) 29.70 kg/m2 Nirmala Kumar MD blood pressure, resting No Kill naila Malone blood pressure, diastolic, left arm 80 mm [Hg] [facility] blood pressure, systolic, left arm 130 mm [Hg] [facility] blood pressure, diastolic, right arm 74 m m[Hg] [facility], systolic, right arm 128 m m[Hg] [facility] pressure, diastolic 80 mm[Hg] [facility] blood pressure, systolic 130 mm[Hg] Celestina becerra [place] oxygen saturation, oximetry 98 % [facility] respiratory rate E&M 16 /min [facility] pulse rate 54 /min [facility] weight E&M 213 [lb_av] [facility] height E&M 71 [in_i] [facility] Body Mass Index (Ratio) 29.84 kg/m2 Jesse Huerta respiratory rate E&M 20 /min Trena Young pulse rate 56 /min Trena Young blood pressure, diastolic 78 mm[Hg] Amarjit hardy Young blood pressure, systolic 118 mm[Hg] Janak melendez Young oxygen saturation, oximetry 97 % Trena Young blood pressure, cuff size regular Amarjit Young blood pressure, resting No Bethanie Young weight E&M 214 [lb_av] Trena Young height E&M 71 [in_i] Trena Young ALLERGIES No Known Drug Allergies RESULTS Date Observation Value Provider Reference Range Interpretation Location 6 prothrombin time (patient) 10.5 s [facility] 9.1-12.0 6 international normalized ratio (INR) 1.0 [facility] 0.8-1.2 6 basophil count, absolute 0.0 x10E3/uL [facility] 0.0-0.2 6 Eosinophil Absolute Count 0.4 X10E3/UL [facility] 0.0-0.4 6 monocyte count, blood, automated 0.6 X10E3/UL [facility] 0.1-0.9 6 lymphocyte count, blood, automated 1.4 X10E3/UL [facility] 0.7-3.1 6 Absolute Neutrophils 3.5 X10E3/UL [facility] 1.4-7.0 6 basophils as percent of blood leukocytes 0 % [facility] Not Estab. 6 eosinophils as percent of blood leukocytes 6 % [facility] Not Estab. 6 monocytes as percent of blood leukocytes 10 % [facility] Not Estab. 6 lymphocytes as percent of blood leukocytes 24 % [facility] Not Estab. 6 neutrophils as percent of blood leukocytes 60 % [facility] Not Estab. 6 platelet count 200 X10E3/UL [facility] [id number] 6847/10/1 6 red blood cell distribution width 13.9 % [facility] 12.3-15.4 6 mean corpuscular hemoglobin concentration, RBC 34.8 G/DL [facility] 31.5-35.7 6 mean corpuscular hemoglobin, RBC 30.9 pg [facility] 26.6-33.0 6 mean corpuscular volume, RBC 89 fL [facility] 79-97 6 hematocrit, blood 42.2 % [facility] 37.5-51.0 hemoglobin, blood 14.7 g/dL [facility] 13.0-17.7 6 erythrocyte (RBC) count 4.76 X10E6/UL [facility] 4.14-5.80 6 leukocyte count, blood 5.8 X10E3/UL [facility] 3.4-10.8 HISTORY OF MEDICATION USE Medication Status Instructions Dates Provider Indications Com josey XARELTO 2.5 MG ORAL TABLET active Take 1 tablet by mouth twice daily Dieudonne Navarro VITAMIN D-[address] TABLET active 1 tab daily [facility] ATORVASTATIN CALCIUM 40 MG ORAL TABLET active 1 tab daily [facility] PROPRANOLOL HCL 10 MG ORAL TABLET active 1 tab daily Yamile Malone NITROSTAT 0.4 MG SUBLINGUAL TABLET SUBLINGUAL active 1 tab sublingual as needed for chest pain up to 3 doses Wesley Eng RN NYSTATIN [id number] UNIT/GM EXTERNAL CREAM completed DIRECTED - Yamile Malone SIMVASTATIN 40 MG ORAL TABLET completed ONE TAB. DAILY - Yamile Malone SLO-NIACIN 500 MG ORAL TABLET EXTENDED RELEASE active 1 tab by mouth twice daily Charisma Gao LEVOTHYROXINE SODIUM 75 MCG ORAL TABLET active ONE TAB. DAILY Trena Young CLOPIDOGREL BISULFATE 75 MG ORAL TABLET completed 1 TAB DAILY - Niru Kumar MD ASPIRIN ADULT LOW DOSE 81 MG ORAL TABLET DELAYED RELEASE active One Tab By Mouth Daily Trena Young SOCIAL HISTORY Date Observation Value Provider social history E&M Patient is a former smoker. Smoking History: Destini danielle is a former smoker. Niru Kumar MD social history reviewed E&M revi ewed - no changes required Niru Kumar MD smoking, year quit 2002 [facility] cigarette use yes [facility] smoking status Former smoker Renay [facility] social history E&M Patient is a former smoker. Smoking History: Destini danielle is a former smoker. Niru Kumar MD social history reviewed E&M revi ewed - no changes required Niru Kumar MD smoking, year quit 2002 [facility] cigarette use yes [facility] smoking status Former smoker Renay [employer] social history E&M Patient is a former smoker. Smoking History: Destini danielle is a former smoker. Niru Kumar MD social history reviewed E&M revi ewed - no changes required Niru Kumar MD smoking, year quit 2002 Charisma Oleary uspepe cigarette use yes Charisma Gao smoking status Former smoker Charisma Snyder er social history E&M Patient is a former smoker. Smoking History: Destini danielle is a former smoker. Niru Kumar MD social history reviewed E&M revi ewed - no changes required Niru Kumar MD smoking, year quit 2002 Lala Low enenfelder cigarette use yes Lala Shortnf elder smoking status Former smoker Lala Short nfelder social history E&M Patient is a former smoker. Smoking History: Destini danielle is a former smoker. Delmi A Hankins STITCH RUBBER social history reviewed E&M revi ewed - no changes required Delmi A Hankins STITCH RUBBER alcohol use no Sonia Joe smoking, year quit 2002 Sonia Bu sby cigarette use yes Sonia [place] smoking status Former smoker Sonia Joe social history reviewed E&M revi ewed - no changes required Niru Kumar MD alcohol use no Niru Kumar MD number of grandchildren Niru Kumar MD social history E&M Patient is a former smoker. Smoking History: Destini danielle is a former smoker. Niru Kumar MD social history reviewed E&M revi ewed - no changes required Niru Kumar MD smoking, year quit 2002 Trena browne cigarette use yes Trena Young smoking status Former smoker Niru de la paz MD FUNCTIONAL STATUS Date Observation Value Provider HRA, CV Assess/Plan, Angina (inactive) Management Plan continue current therapy Timmy Oneal HRA, CV Assess/Plan, Angina (inactive) Management Plan continue current therapy Niru Kumar MD HRA, CV Assess/Plan, Angina (inactive) Management Plan schedule PCI Timmy Oneal HRA, CV Assess/Plan, Angina (inactive) Management Plan continue current therapy Niru Kumar MD HRA, CV Assess/Plan, Angina (inactive) Management Plan continue current therapy Delmi Hankins NP HRA, CV Assess/Plan, Angina (inactive) Management Plan continue current therapy Niru Kumar MD HRA, CV Assess/Plan, Angina (inactive) Management Plan continue current therapy Niru Kumar MD FAMILY HISTORY Family Member Condition Full Sister Family History of Al coholism: Mother Family History of Co ronary Artery Disease: INSURANCE PROVIDERS Payer name Policy type / Coverage type Zora red constitution party ID [place] MED[place] B Medicare [id number] [facility] Medicaid 3 [id number] ADVANCE DIRECTIVES Name Date DISCUSSED - NO DECISION MADE TREATMENT PLAN Date Name Performer Cardiology:Has new mask and is c ompliant. Cardiology:Continues on replacem ent therapy. Cardiology:Previous LDL 76. He continues on Atorvastatin and Slo-niacin. We aim for an LDL <70. He would benefit from repeat lipid panel. Cardiology:Chest love n free. Effort tolerance stable. He continues on Aspirin 81mg daily and Xarelto 2.5mg BID. Cardiology:Clinicall y stable. EF 45-50% on cath. Will repeat echo at his next appointment. Telehealth:Continues on replacement therapy. Telehealth:Received new mask and is tolerating it well. Compliant. Telehealth:Clinically stable. EF 45-50% on cath. Timmy Telehealth:Previous LDL 76. He continues on Atorvastatin and Slo-niacin. Telehealth:Chest love n free. Effort tolerance stable. He continues on Aspirin 81mg daily and Xarelto 2.5mg BID. Cardiology:Continues on replacement therapy. Cardiology:The patie nt is using CPAP on a regular basis. The patient has been benefiting from therapy and should continue use. Cardiology:Clinically stable. EF 45-50% on cath. Cardiology:Most rece nt lipid panel showed an LDL 76. He continues on Atorvastatin and Slo-niacin. Cardiology:Recent ca rdiac cath with 40-50% instent stenosis. He continues on Aspirin 81mg daily. He has a history of CAD with stents as well as risk factors of hyperlipidemia. As per COMPASS Study, will discontinue Plavix and start Xarelto 2.5mg BID. Cardiology:Continues on replacem ent therapy. Cardiology:The patie nt is using CPAP on a regular basis. The patient has been benefiting from therapy and should continue use. Cardiology:Most nt lipid panel showed an LDL 76. He continues on Atorvastatin and Slo-niacin. Cardiology:EF 35% on echocardiogram which is largely unchanged. He continues on current regimen. Cardiology:Abnormal stress test in a patient with CAD and history of stents and thrombus. A cardiac cath was discussed with the patient and his and he is agreeable to undergo the procedure. The risks and benefits of the procedure, including but not limited the risk of heart attack, , stroke, bleeding, kidney failure, and loss of limb as well as the alternative of continued medical therapy, stress testing or bypass surgery were discussed with the patient and any present family members and the patient wishes to proceed with cardiac cath and stenting. The patient and family had opportunity to discuss this with us. Written material including informed consent was given out. Timmy Oneal Cardiology Follow up :Continues on replacement therapy. Niru Kumar MD Cardiology Follow up :The patient is using CPAP on a regular basis. The patient has been benefiting from therapy and should continue use. Niru Kumar MD Cardiology Follow up :Continues on Atorvastatin and Slo-niacin. Niru Kumar MD Cardiology Follow up :Most recent EF 35%. Will repeat echocardiogram. Niru Kumar MD Cardiology Follow up :His most stress test in 2017 showed abnormal perfusion. He denies of any chest pain or shortness of breath. Will repeat stress test. If his stress test is abnormal, he will benefit from cardiac cath. He has a history of CAD with stents and thrombus. He has been on Aspirin and Plavix for 4+ years. As per COMPASS study, he would benefit from the discontinuation of Plavix and addition of Xarelto 2.5mg twice daily and Aspirin 81mg indefinitely after cardiac cath. Niru Kumar MD Cardiology:Patient h as been on ASA and Plavix since 2014. Will be having colonoscopy soon, will need to address if he can be off Plavix for 5 days and if need to resume both medications. Delmi Hankins NP Cardiology:Patient's last echo shows EF of 40%. Will recheck this year to determine deterioration vs improvement given his exercise limitations. 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 Niru Kumar MD Cardiology:On replac ement therapy. Niru Kumar MD Cardiology:Recently switched from simvastatin to atorvastatin. Will obtain most recent lipid results from your office. Niru Kumar MD Cardiology:Chest love n free. Effort tolerance stable. No NTG use since last visit and has begun to increase his daily exercise. Continues on ASA/Plavix. 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 Niru Kumar MD Cardiology:On simvas tatin and niacin. Will get blood results from your office. Niru Kumar MD Cardiology:Continues on aspirin and plavix. His EKG shows sinus rhythm and non specific ST wave changes. Will arrange adenosine stress and an echo. Jesse Huerta Date Name Complete Echo CBC (INCLUDES DIFF/P LT) PROTHROMBIN TIME WIT H INR Complete Echo Stress Regadenoson Complete Echo STR - Adenosine Complete Echo HISTORY OF PROCEDURES Procedure Date Procedure Name Provider Procedure Notes S tatus EKG Niru Kumar MD complet ed EKG Niru Kumar MD complet ed EKG Niru Kumar MD complet ed Stress EKG Niru Kumar MD complet ed Cardiolite, 2 units Niru Kumar MD completed SPECT Images Niru Kumar MD compl eted EKG Niru Kumar MD complet ed ZIO Holter Hookup Domenic Glez MD c ompleted EKG kerry test PharmD, BCPS completed EKG Niru Kumar MD complet ed SNOMED-CT: [id number] Current Medications Documented Niru Kumar MD completed Stress EKG Niru Kumar MD complet ed Regadenoson, 4 units Niru Kumar MD completed Cardiolite, 2 units Niru Kumar MD completed SPECT Images Niru Kumar MD compl eted SNOMED-CT: [id number] Current Medications Documented Austen Villegas MD completed SNOMED-CT: [id number] Physical Exam, Performed: Pulse Exam of Foot Austen Villegas MD completed
--- OUTSIDE RECORDS SUMMARY | 2024-12-30 15:45 | XMS_ITS | Clinical Summary ---
Author Organization [facility] Address [address] [address] Phone Care Team Providers Care Kelp Or Seagrass Gatherer Name Role Phone Yoandy Adkins MD Unavailable [phone] Ramu Parker MD Primary Care Provider [phone] Olegario Rhodes MD Unavailable Allergies Active Allergy Reactions Criticality Noted Date Comments Propranolol Other (see Comments) 06/23/2019 Slept atleast 16 hours a day Medications Aspirin 81 MG Tablet Take 81 mg by mouth nightly. Active Cholecalciferol (VITAMIN D3) 1000 UNIT Tablet Take 1 Tab by mouth daily. 30 Tab 3 9 Active sildenafil citrate (VIAGRA) 50 MG Tablet Take 1 Tab by mouth as needed for Erectile Dysfunction. 10 Tab 3 9 Active niacin 500 MG TabletIndication s:High cholesterol Take 1 Tab by mouth 2 times daily. 180 Tab 2 9 Active XARELTO 2.5 MG Tablet Take 2.5 mg by mouth 2 times daily. 0 Active triamcinolone (KENALOG) 0.1 % Cream Application Site: apply twice a day to right leg for 10 - 14 days (Description and Location) 80 g 0 Active Additional Information Patient not taking.Reported on 06/21/2022 EUTHYROX 75 MCG Tablet Take 1 tablet by mouth once daily 90 Tab 3 0 Active Additional Information Patient not taking.Reported on 06/21/2022 nitroGLYCERIN (NITROSTAT) 0.4 MG SL Tablet 0.4 mg. 8 Active atorvastatin (LIPITOR) 40 MG Tablet Take 1 tablet by mouth once daily 90 Tab 1 Active propranolol (INDERAL) 10 MG Tablet Take 1 Tab by mouth 2 times daily. 180 Tab 1 Active rOPINIRole (REQUIP) 0.25 MG Tablet Take 0.25 mg by mouth nightly. Active lisinopril (PRINIVIL, ZESTRIL) 5 MG Tablet Take 5 mg by mouth daily. Active levothyroxine (SYNTHROID) 100 MCG Tablet Take 100 mcg by mouth daily. Active carbidopa-levodo pa (SINEMET) 25-100 MG Tablet 3 times daily. 3 Active donepezil (ARICEPT) 10 MG Tablet Take 10 mg by mouth. 2 Active Active Problems Problem Noted Date Diagnosed Date Restless legs syndrome (RLS) 06/21/2022 Essential (primary) hypertension 06/21/2022 Memory loss 03/25/2020 Hyperglycemia 12/28/2019 Vitamin D deficiency 12/25/2019 Bilateral hearing loss 06/17/2019 Erectile dysfunction 03/13/2019 Renal stone 12/20/2018 Tremor 12/10/2018 Daytime sleepiness 12/10/2018 Snoring 12/10/2018 Poor compliance with CPAP treatment 12/10/2018 ERIK (obstructive sleep apnea) 12/10/2018 Hematuria 10/01/2018 Overweight (BMI 25.0-29.9) 09/03/2018 Hypothyroidism 09/03/2018 Ganglion cyst of volar aspect of left wrist 10/26 Epidermoid cyst 11/07/2017 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 Hyperlipidemia History of heart attack History of kidney stones Immunizations Immunization Administration Dates Next Due Influenza Vaccine 08/06/2019, 6,09/03/2015,2013,09/12/2013 Influenza Vaccine greater than 3 yrs 08/23/2018, 09/13/2015 Influenza Vaccine, Quadrivalent, PF 08/22/2018,1 Influenza Vaccine,unspecifie d Formulation 09/13/2016 Influenza, High-dose, Quadrivalent 07/28/2023,,09/08/2021 Influenza, Seasonal, Injecta ble, Undefined 07/30/2017,09/13/2015 Influenza, high-dose, trivalent, PF 07/26/2020,0 08/06/2019 Pneumococcal Vaccine - 13 Valent 08/06/2019 Pneumococcal Vaccine Adult - 23 Valent 08/04/2020 Pneumococcal Vaccine, Unspec ified Formulation 01/13/2015 TDAP Vaccine 09/25/2019,09/03/2018 Zoster Vaccine Recombinant 01/14/2019,10/23/2018 Family History Medical History Relation Name Comments Cancer Father stomach esophag us Heart Attack Mother Stroke Mother Lupus Sister 1 Alcohol Abuse Sister 2 Stroke Sister 2 No Known Problems Sister 3 Ulcerative Colitis Son Relation Name Status Comments Father Mother Sister 1 Sister 2 Sister 3 Alive Son Social History Tobacco Use Types Packs/Day Years Used Date Smoking Tobacco: Former Cigarettes 2 30 0 02/28/1972 - 02/27/2002 Smokeless Tobacco: Never Tobacco Cessation:Counseling Given: Not Answered Alcohol Use Standard Drinks/Week Comments No 0 [...] Sign Reading Time Taken Comments Blood Pressure 126/70 07/13/2023 10:15 AM CDT Pulse 56 07/13/2023 10:15 AM CDT Temperature 36.1 ??C (96.9 ??F) 07/13/2023 10:15 AM C DT Respiratory Rate 14 07/13/2023 10:15 AM CDT Oxygen Saturation 96% 07/13/2023 10:15 AM CDT Inhaled Oxygen Concentration - - Weight 94.8 kg (209 lb 1.6 oz) 07/13/2023 10:15 AM CDT Height 180.3 cm (5' 11 ) 07/13/2023 10:15 AM CDT Body Mass Index 29.16 07/13/2023 10:15 AM CDT Plan of Treatment Health Maintenance Due Date Last Done Comments Cologuard 2004 Immunochemical Fecal Occult Blood 2004 Influenza Immunization (#1) 07/27/202412/2022, 07/07/2022, 09/08/2021, Additional history exists SARS-COV-2 Immunization ( season) 2024 09/03/2022, 03/03/2022, 09/08/2021, Additional history exists Colonoscopy 09/25/2028 09/25/2018 Colorectal Cancer Screening 09/25/2028 Respiratory Syncytial Virus (RSV) Immunization (Adult) (1 - 1-dose 75+ series) 2029 Td Immunization Every 10 Years (Adults With 1 Tdap) 08/03/2031 08/03/2021, 09/25/2019, 09/03/2018 09/25/2018 Hepatitis C Virus (HCV) Screening Completed 09/04/2018 Zoster Immunization Completed 01/14/2019, 8 PSA Discussion Discontinued 01/05/2020, 04/2019, 06/18/2019, Additional history exists AAA Screening Ultrasound Discontinued 07/28/2020 Pneumococcal Immunization (50+ years) Completed 08/04/2020, 08/06/2019, 01/13/2015 Pneumococcal Immunization Combined Discontinued 08/04/2020, 08/06/2019, 01/13/2015 Hepatitis B Immunization Aged Out No longer eligible based on patient's age to complete this topic Meningococcal Immunization (ACWY) Aged Out No longer eligible based on patient's age to complete this topic Rotavirus Immunization Aged Out No lo nger eligible based on patient's age to complete this topic Medical Devices Implanted Type Area Ip Attorney Device Identifier Shelf Expiration Date Model / Serial / Lot Stent Ureteral 6fr 2.1fr 26cm 2 Pigtail Curve 2 Durometer Taper Tip Loprfl Graduated Polaris Ultra - [id number] Implanted:Qty : 1 on 01/17/2019 by Terrence Jose MD at [facility] IMPLANT Right: Ureter J. Hilburn 07/17/2021 [id number] / [id number] / [id number] Procedures Procedure Name Priority Date/Time Associated Diagnosis Comments US AAA SCREENING Routine 07/28/2020 9:30 AM CDT Screening for AAA (abdominal aortic aneurysm) PSA DIAGNOSTIC,TOTAL Routine 01/05/2020 11:45 AM BOOKING PRIZER Elevated PSA HEPATITIS C ANTIBODY Routine 09/04/2018 8:21 AM CDT Encounter for hepatitis C screening test for low risk patient from Last 3 Months or Most Recently Relevant to Health Maintenance Results * US AAA SCREENING (07/28/2020 9:30 AM CDT) Anatomical Region Laterality Modality Abdomen N/A Ultrasound 07/29/2020 11:4 8 AM CDT Impressions 07/29/2020 11:51 AM CDT IMPRESSION: ?? No abdominal aortic aneurysm. Narrative 07/29/2020 11:51 AM CDT EXAM DESCRIPTION: ?? US AAA SCREENING REASON FOR STUDY: ?? Encounter for screening for cardiovascular disorder, screening for abdominal aortic aneurysm. TECHNIQUE: ??Grayscale images acquired of the aorta and stored on PACS. Selected color Doppler and spectral images recorded. COMPARISON: ?? None. FINDINGS: ??AORTIC CALIBER MAXIMAL PROXIMAL: 2.6 x 2.7 cm with peak systolic velocity 95 cm/second. MID: 2.1 x 2.3 cm with peak systolic velocity 96 cm/second. DISTAL: ??2.2 x 2.1 cm with peak systolic velocity 86 cm/second. ILIAC DIAMETER RIGHT: 1.6 x 1.5 cm with peak systolic velocity 113 cm/second. LEFT: 1.5 x 1.6 cm with peak systolic velocity 119 cm/second. OTHER: ??No other significant finding. THIS IS AN ELECTRONICALLY VERIFIED FINAL REPORT 07/29/2020 11:48 AM - Electronically signed by Candido Morales M.D. CH: FRANCI D: ??07/29/2020 11:48 AM T: ??07/29/2020 11:48 AM Report ID: [id number] Reading Location: ??[id number] Procedure Note Candido Morales Jr., MD - 07/29/2020 EXAM DESCRIPTION: US AAA SCREENING REASON FOR STUDY: Encounter for screening for cardiovascular disorder, screening for abdominal aortic aneurysm. TECHNIQUE: Grayscale images acquired of the aorta and stored on PACS. Selected color Doppler and spectral images recorded. COMPARISON: None. FINDINGS: AORTIC CALIBER MAXIMAL PROXIMAL: 2.6 x 2.7 cm with peak systolic velocity 95 cm/second. MID: 2.1 x 2.3 cm with peak systolic velocity 96 cm/second. DISTAL: 2.2 x 2.1 cm with peak systolic velocity 86 cm/second. ILIAC DIAMETER RIGHT: 1.6 x 1.5 cm with peak systolic velocity 113 cm/second. LEFT: 1.5 x 1.6 cm with peak systolic velocity 119 cm/second. OTHER: No other significant finding. THIS IS AN ELECTRONICALLY VERIFIED FINAL REPORT 07/29/2020 11:48 AM - Electronically signed by Candido Morales M.D. CH: FRANCI Report ID: [id number] Reading Location: [place] [address] IMPRESSION: No abdominal aortic aneurysm. Garrison Castillo APRN, CNP IM US ORDERABLE S Final Result * PSA DIAGNOSTIC,TOTAL (01/05/2020 11:45 AM BOOKING PRIZER) Pathologist [facility] PSA, TOTAL (PROSTATIC SPECIFIC ANTIGEN) 3.17 <=4.00 ng/mL 01/05/2020 2:06 PM BOOKING PRIZER [facility] Blood specimen (specimen) Venipuncture / Unknown 01/05/2020 11:45 AM BOOKING PRIZER 01/05/2020 1:24 PM BOOKING PRIZER Narrative [facility] - 01/05/2020 2:06 PM BOOKING PRIZER PSA NOTE: The PSA value should be used in conjunction with information available from clinical evaluation and other diagnostic procedures. Terrence Jose MD CHEMISTRY ORDERABLES Final Result [facility] [address] [place] [address] * HEPATITIS C ANTIBODY (09/04/2018 8:21 AM CDT) hepatitis C antibody 0.15 <1 S/CO 09/04/2018 11:12 PM CDT [facility] Comment: Signal/Cutoff ratio ??< 0.79 is Nondetected Signal/Cutoff ratio 0.80-0.99 is Grayzone Signal/Cutoff ratio > 0.99 is Detected Supplemental assays are recommended if signal/cutoff ratio is >/=1.00. ??Signal/cutoff ratio result >/= 5.00 is 97% predictive of positivity for recombinant immunoblot assay (RIBA) and will be reported to the [place] Department of Public Health as required. Blood specimen (specimen) Venipuncture / Unknown 09/04/2018 8:21 AM CDT 09/04/2018 10:28 AM CDT us Luis M Almazan MD CHEMISTRY ORDERABLES Final Result [facility] [address] [place] [address], [place] from Last 3 Months or Most Recently Relevant to Health Maintenance Insurance MEDICAID [place] MEDICARE Advance Directives * Full Code (Latest Code Status on File) Date Activated Date Inactivated Comments 08/17/2015 9:25 AM 09/25/2018 6:18 AM Care Teams Kelp Or Seagrass Gatherer Relationship Specialty Start Date End Date Ramu Parker MD [address] [facility] [address] [place] [address] PCP - General Family Medicine 12/22/21 Yoandy Adkins MD General Surgery 11/01/17 Olegario Rhodes MD [address] [place] [address] Consulting Physician Pulmonary Disease 06/21/22
--- OUTSIDE RECORDS SUMMARY | 2024-12-30 15:45 | XMS_ITS | Encounter Summary ---
Author Organization [facility] Address [address] [place] [address] Phone Care Team Providers Care Cloud Solutions Architect Name Role Phone Yoandy Adkins MD Unavailable [phone] uLis M Almazan MD Primary Care Provider Ramu Parker MD Primary Care Provider Olegario Rhodes MD Unavailable Reason for Visit * Reason Comments Medication Refill Encounter Details Date Type Department Care Team ([facility] Contact Info) Description 09/20/2020 Refill [facility] [address] [place], [place] [phone] Luis M Almazan MD [address] [address] Medication Refill Social History Tobacco Use Types [...] file Not on file Not on file documented as of this encounter Miscellaneous Notes * Telephone Encounter - Jarred Galvin RN - 09/21/2020 11:16 AM CDT Routing to PCP for review r/t med alert. Requested Prescriptions Pending Prescriptions Disp Refills propranolol (INDERAL) 10 MG Tablet [Pharmacy Med Name: Propranolol HCl 10 MG Oral Tablet] 180 Tab 0 Sig: Take 1 tablet by mouth twice daily Cardiovascular: Beta Blockers Passed - 09/20/2020 9:46 AM Passed - Valid encounter within last 12 months Past Office Visits Recent Outpatient Visits 1 month ago Mixed hyperlipidemia [facility]N, ENVIRONMENTAL FIELD OFFICE MANAGER 4 months ago Rash [facility] - Luis M Wilcox MD 6 months ago Hyperglycemia [facility] - Luis M Wilcox MD [address] [facility] 12 months ago Abscess of right arm [facility] Medical [facility] Family [facility] Luis M Wilcox MD Upcoming Appointments Future Appointments In 1 month Luis M Almazan MD [facility] In 2 months Olegario Rhodes MD [facility] In 3 months Terrence Jose MD [facility], [facility] INDUSTRIAL PRODUCTION MANAGER - Recent and Past Visits Recent Visits Date Type Provider Dept 07/26/20 Office Visit Garrison Castillo APN, ENVIRONMENTAL FIELD OFFICE MANAGER [facility] 05/04/20 Office Visit Luis M Almazan MD [facility] 03/25/20 Telemedicine Luis M Almazan MD [facility] 12/25/19 Office Visit Luis M Almazan MD [facility] 09/25/19 Office Visit Luis M Almazan MD [facility] 09/17/19 Office Visit Garrison Castillo APN, ENVIRONMENTAL FIELD OFFICE MANAGER [facility] Showing recent visits within past 460 days with a meds authorizing provider and meeting all other requirements Future Appointments Date Type Provider Dept 10/29/20 Appointment Luis M Almazan MD [facility] Showing future appointments within next 90 days with a meds authorizing provider and meeting all other requirements Passed - Last BP in normal range BP Readings from Last 1 Encounters: 07/26/20 128/82 documented in this encounter Plan of Treatment Not on file documented as of this encounter Visit Diagnoses Not on filedocumented in this encounter Additional Health Concerns Assessment Noted Time PHQ-9 Depression Total Score: 0 12/25/19 10:05 AM 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
--- OUTSIDE RECORDS SUMMARY | 2024-12-30 15:45 | XMS_ITS | Encounter Summary ---
Author Organization [facility] Address [address] [place] [address] Phone Care Team Providers Care Research And Insights Executive Name Role Phone Yoandy Adkins MD Unavailable [phone] Luis M Almazan MD Primary Care Provider Ramu Parker MD Primary Care Provider Olegario Rhodes MD Unavailable Reason for Visit * Reason Comments Medication Refill Encounter Details Date Type Department Care Team ([facility] Contact Info) Description 06/28/2020 Refill [facility] [address] [place], [place] [phone] Luis M Almazan MD [address] [address] Medication Refill Social History Tobacco Use Types [...] encounter Miscellaneous Notes * Telephone Encounter - Keisha Moreno RN - 07/01/2020 8:29 AM CDT Requested Prescriptions Pending Prescriptions Disp Refills propranolol (INDERAL) 10 MG Tablet [Pharmacy Med Name: Propranolol HCl 10 MG Oral Tablet] 180 Tab 0 Sig: Take 1 tablet by mouth twice daily Cardiovascular: Beta Blockers Passed - 06/28/2020 10:07 AM Passed - Valid encounter within last 12 months Past Office Visits Recent Outpatient Visits 1 month ago [facility] Luis M Almazan MD 3 months ago Hyperglycemia [facility] Luis M Almazan MD 6 months ago Rash [facility] Luis M Almazan MD 9 months ago Abscess of right arm [facility] Luis M Weiss MD 9 months ago Hyperlipidemia, unspecified hyperlipidemia type [facility] Garrison Castillo APN, BENNY Upcoming Appointments Future Appointments In 3 weeks Garrison Castillo APN, B[facility], [facility] In 5 months Olegario Rhodes MD [facility]ULMON[facility], [facility] In 6 months Terrence Jose MD [facility] UROLOGY, [facility] SIGN HANGER - Recent and Past Visits Recent Visits Date Type Provider Dept 05/04/20 Office Visit Luis M Almazan MD [facility] 03/25/20 Telemedicine Luis M Almazan MD [facility] 12/25/19 Office Visit Luis M Almazan MD [facility] 09/25/19 Office Visit Luis M Almazan MD [facility] 09/17/19 Office Visit Garrison Castillo APN, CNP [facility] 06/17/19 Office Visit Luis M Almazan MD [facility] Showing recent visits within past 460 days with a meds authorizing provider and meeting all other requirements Future Appointments Date Type Provider Dept 07/26/20 Appointment Garrison Castillo APN, WEB MERCHANT [facility] Showing future appointments within next 90 days with a meds authorizing provider and meeting all other requirements Passed - Last BP in normal range BP Readings from Last 1 Encounters: 05/11/20 140/80 Routing to PCP for allergy/contraindication warning. 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
--- OUTSIDE RECORDS SUMMARY | 2024-12-30 15:45 | XMS_ITS | Encounter Summary ---
Author Organization [facility] Address [address] [place] [address] Phone Care Team Providers Care Community Development Worker Name Role Phone Yoandy Adkins MD Unavailable [phone] Luis M Almazan MD Primary Care Provider Ramu Parker MD Primary Care Provider Olegario Rhodes MD Unavailable Reason for Visit * Reason Comments Medication Refill Encounter Details Date Type Department Care Team ([facility] Contact Info) Description 09/06/2020 Refill [facility] [address] [place], [place] [phone] Luis M Almazan MD [address] [address] Medication Refill Social History Tobacco Use Types [...] Total Score: 0 12/25/19 20 10:05 AM STACK ATTENDANT documented as of this encounter Care Teams Community Development Worker Relationship Specialty Start Date End Date Luis M Almazan MD [address] [address] PCP - General Family Medicine 09/03/18 12/21/21 Ramu Parker MD [address] [facility] [address] [place] [address] PCP - General Family Medicine 12/22/21 Yoandy Adkins MD General Surgery 11/01/17 Olegario Rhodes MD [address] [place] [address] Consulting Physician Pulmonary Disease 06/21/22 documented as of this encounter
--- OUTSIDE RECORDS SUMMARY | 2024-12-30 15:45 | XMS_ITS | Encounter Summary ---
Author Organization [facility] Address [address] [place] [address] Care Team Providers Care Cryogenic Transport Driver Name Role Phone Ramu Parker MD Primary Care Provider [phone] Deirdre Jeong MD Unavailable Phillip Roque MD Unavailable [phone] Encounter Details Date Type Department Care Team (Late st Contact Info) Description 04/25/2024 Agradis Message Enc [facility] ield [address] [place] [address] [facility] Provider Echo Social History Tobacco Use Types Packs/Day Years Used Date Smoking Tobacco: Former Smokeless Tobacco: Never Comments:Patient is no longe r smoking Alcohol Use Standard Drinks/Week Comments Never [...] Sex Assigned at Male 12/12/2024 11:38 AM CLAY TRANSPORTER Legal Sex Male 11:54 PM CDT Gender Identity Not on file Sexual Orientation Not on file Occupation Industry Job Start Date Job End Date retired Not on file Not on file Not on file documented as of this encounter Functional Status [...] Info) Description 06/11/2025 9:[address] [facility] [address] [place] [address] Deirdre Jeong MD [address] [place] [phone] 07/06/2025 3:00 PM CDT Office Visit [facility] [address] [place] [address] Deirdre Jeong MD [address] [place] [address] documented as of this encounter Visit Diagnoses Not on filedocumented in this encounter Care Teams Cryogenic Transport Driver Relationship Specialty Start Date End Date Ramu Parker MD [address] [place] [address] PCP - General FAMILY PRACTICE 02/02/21 Deirdre Jeong MD [address] [place] [address] [place] Clinical Manager Home Care CARDIOVASCULAR DISEASE 05/06/21 Phillip Roque MD [address] [place] [phone] UROLOGY 12/11/23 documented as of this encounter
--- OUTSIDE RECORDS SUMMARY | 2024-12-30 15:45 | XMS_ITS | Clinical Summary ---
Author Organization [facility] Address [address] [place] [address] Care Team Providers Care Internal Recruiter Name Role Phone Erlin Monteiro MD Primary Care Provider [phone] Allergies No known active allergies Medications niacin (NIASPAN) 500 mg tablet take 4 Tablet (2000MG) by oral route every day 0 03/28/2013 Active aspirin (ASPIR-81) 81 mg tablet take 1 tablet (81MG) by oral route every day 0 03/28/2013 Active nitroglycerin (NITROQUICK) 0.4 mg SL tablet Take as directed 0 0 07/22/2008 Active levothyroxine (SYNTHROID, LEVOTHROID) 75 mcg tablet take 1 tablet by oral route every day 0 0 04/12/2017 Active propranolol (INDERAL) 10 mg tablet take 1 tablet by oral route 2 times every day 0 0 04/12/2017 Active cholecalciferol (cholecalcifero l) 1,000 unit tablet 0 0 04/12/2017 Active clopidogrel (PLAVIX) 75 mg tablet take 1 tablet by oral route every day 0 0 04/12/2017 Active atorvastatin (LIPITOR) 40 mg tablet take 1 tablet by oral route every day 0 0 04/12/2017 Active Active Problems Problem Noted Date Diagnosed Date Memory loss 11/05/2017 Long-term memory loss 04/12/2017 Overview (04/20/2017): Poor long-term memory Hypertension 04/11/2014 Overview (03/01/2017): HYPERTENSION NOS Hyperlipidemia 04/11/2014 Overview (03/01/2017): HYPERLIPIDEMIA NEC/NOS Hypothyroidism 04/11/2014 Overview (03/01/2017): HYPOTHYROIDISM NOS Right inguinal hernia 04/07/2013 Overview (03/01/2017): Right inguinal hernia Immunizations Name Administration Dates Next Due Influenza, Quadrivalent, Spl it, Preservative Free, Intramuscular 09/12/2013 Influenza, Trivalent, Preservative Free, Intramu scular 09/27/2014 Surgical History Surgery Date Site/Laterality Comments OTHER SURGICAL HISTORY Coronary artery disease: stent placement OTHER SURGICAL HISTORY Medial meniscectomy, bilateral: arthroscopy OTHER SURGICAL HISTORY nephrolithiasis: passing, 1 stent OTHER SURGICAL HISTORY Hypothyroidism, Primary: Drug therapy KNEE ARTHROSCOPY 1998 Left Arthroscopy knee OTHER SURGICAL HISTORY Bilateral Arthroscopic knees OTHER SURGICAL HISTORY repair fractured right hand OTHER SURGICAL HISTORY excision cyst on buttocks OTHER SURGICAL HISTORY percutaneous transluminal balloon angioplasty with insertion of stent into coronary artery TONSILLECTOMY Tonsillectomy OTHER SURGICAL HISTORY 2012 repair right inguinal hernia with mesh Medical History Medical History Date Comments Cardiovascular disease 2005 Coronary artery disease Hx Other Medical Medial meniscec xuan, bilateral Calculus of kidney nephrolithias is Hx Other Medical 1997 Hypothyroidism, Primary Hx Other Medical Heart attack Calculus of kidney Kidney stones Disorder of thyroid Thyroid dise ase Hyperlipidemia Hyperlipidemia Hx Other Medical Stint placement Chronic coronary artery disease Coronary artery disease Cataract of both eyes Cataracts Hx Other Medical 09/11/2015 [facility] Family History Medical History Relation Name Comments Other Father 2 Cancer - stomac h; Coronary artery disease Mother 2 Laquita nary artery disease; Other Mother 2 CAD, CVA; Stroke Mother 2 Stroke; Arthritis Other Family history of Arthritis; Cancer Other Family history of Cancer; Heart disease Other Family history of Heart disease; Hypertension Other Family history of Hypertension; Kidney disease Other Family histor y of Renal disease; Stroke Other Family history of Stroke; Lupus Sister 2 Systemic lupus erythematosus; Lupus Sister 3 Lupus erythemat osus; Relation Name Status Comments Father 1 Alive Father 2 Mother 1 Alive Mother 2 Other Sister 1 Alive Sister 2 Sister 3 Social History Tobacco Use Types Packs/Day Years Used Date Smoking Tobacco: Former Smokeless Tobacco: Never Alcohol Use Standard Drinks/Week Comments No 0 (1 standard drink = 0.6 oz pur e alcohol) Sex and Gender Information Value Date Recorded Sex Assigned at Not on file Legal Sex Male 12:45 AM 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 Gender Identity Not on file Sexual Orientation Not on file Obstetrics History Last Filed Vital Signs Vital Sign Reading Time Taken Comments Blood Pressure 118/74 11/05/2017 1:07 PM 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 Pulse 55 11/05/2017 1:07 PM 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 Temperature - - Respiratory Rate - - Oxygen Saturation 94% 04/12/2017 8:24 AM CDT Inhaled Oxygen Concentration - - Weight 98 kg (216 lb) 11/05/2017 1:07 PM 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 Height 177.8 cm (5' 10 ) 11/05/2017 1:07 PM 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 Body Mass Index 30.99 11/05/2017 1:07 PM 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 Plan of Treatment Health Maintenance Due Date Last Done Comments Colon Cancer Screening-Colonoscopy 1954 Depression Screening 1954 Fall Risk Assessment 1955 Hepatitis C Screening 1955 Hepatitis B Screening 1972 Well Visit 65+ 2019 Covid-19 Vaccine (2 - 2023-2 5 season) 2024 02/01/2021 Influenza Vaccine (#1) 2024 , 07/26/2020, 08/06/2019, Additional history exists DTaP/Tdap/Td Vaccine (4 - Td or Tdap) 08/03/2031 08/03/2021, 09/25/2019, 09/03/2018 Zoster Vaccine Completed 01/14/2019, 10/23/2018 Pneumococcal vaccine 65+ Completed 020, 08/06/2019, 01/13/2015 Abdominal Aortic Aneurysm (A AA) Screen Completed 06/16/2024, 08/03/2021, 07/28/2020, Additional history exists Insurance [id number] [place] [address] [facility] Care Teams Internal Recruiter Relationship Specialty Start Date End Date Erlin Monteiro MD PCP - General Internal Medicine 10/31/17
--- OUTSIDE RECORDS SUMMARY | 2024-12-30 15:45 | XMS_ITS | Referral Summary ---
Author Organization [facility] Address [address] [place] [address] Care Team Providers Care Plating Technician Name Role Phone Erlin Monteiro MD Primary Care Provider [phone] Allergies No known active allergies Medications niacin [...] Influenza, Trivalent, Preservative Free, Intramu scular 09/27/2014 Social History Tobacco Use Types Packs/Day Years Used Date Smoking Tobacco: Former Smokeless Tobacco: Never Alcohol Use Standard Drinks/Week Comments No 0 (1 standard drink = 0.6 oz pur e alcohol) Sex and Gender Information Value Date Recorded Sex Assigned at Not on file Legal Sex Male 12:45 AM 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 Gender Identity Not on file Sexual Orientation Not on file Last Filed Vital Signs Vital Sign Reading Time Taken Comments Blood Pressure 118/74 11/05/2017 1:07 PM 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 Pulse 55 11/05/2017 1:07 PM 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 Temperature - - Respiratory Rate - - Oxygen Saturation 94% 04/12/2017 8:24 AM CDT Inhaled Oxygen Concentration - - Weight 98 kg (216 lb) 11/05/2017 1:07 PM 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 Height 177.8 cm (5' 10 ) 11/05/2017 1:07 PM 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 Body Mass Index 30.99 11/05/2017 1:07 PM 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 Plan of Treatment Not on file Insurance [facility] [id number] [place] [address] Care Teams Plating Technician Relationship Specialty Start Date End Date Erlin Monteiro MD PCP - General Internal Medicine 10/31/17
== END 2024-12-30 15:39 | disposition home or self-care (01) ==
LOC: CHSLAB 15:41
PROVIDERS: PCP Family Medicine; Visit Provider Specialist
DX: L57.0 Actinic keratosis (principal); C44.722 Squamous cell carcinoma of skin of right lower limb, including hip
CPT/HCPCS: 88305